=== PATIENT | male | born 1975 | race Caucasian/White ===

== ENCOUNTER → 2019-03-11 14:10 | Outpatient (CLI) | payer BC, SELFPAY ==
--- NOTE | 2019-03-11 14:14 | XR_ITS ---
XR chest 2V HISTORY: ITS.REASON: COUGH ORDERING PHYSICIAN: Gera Ferguson MD PATIENT AGE: 43 years COMPARISON: 01/02/2011 FINDINGS: The cardiomediastinal silhouette and pulmonary vascularity are within normal limits. The lungs are clear without infiltrates, suspicious nodules, or pleural effusions. No acute bony abnormalities. IMPRESSION: Negative chest, no acute finding
== END ==
PROVIDERS: PCP Family Medicine; Visit Provider Family Medicine
DX: R05 Cough (principal)
CPT/HCPCS: 71046

== ENCOUNTER 2021-05-22 03:11 | Emergency (ER) | payer BC, SELFPAY ==
[2021-05-22 03:12] VITALS: BP 113/92; PULSE 100; RESP 18; TEMP 36.9; O2SAT 98; BMI 31.5
[2021-05-22 04:00] LABS: Basophils % 0.4 % (0.1-2.0); Eosinophils # 0.2 K/mm3 (0.0-0.4); Eosinophils % 1.8 % (0.1-12.0); Hemoglobin 16.6 g/dL (14.1-18.0); Lymphocytes # 1.6 K/mm3 (0.7-4.5); Lymphocytes % 18.8 % (10-50); Mean Corpuscular HGB Conc 34.7 g/dL (31.8-35.4); Mean Corpuscular Hemoglobin 28.7 pg (27.0-31.2); Mean Corpuscular Volume 82.9 fl (80-94); Mean Platelet Volume 8.2 fl (7.4-10.4); Monocytes # 0.6 K/mm3 (0.1-1.0); Platelet Count 197 K/mm3 (142-424); Red Blood Count 5.79 M/mm3 (4.60-6.20); Red Cell Distribution Width 13.2 % (11.5-17.5); White Blood Count 8.3 K/mm3 (4.8-10.8)
[2021-05-22 04:15] LABS: Alanine Aminotransferase 20 U/L (12-78); Albumin Level 4.3 g/dl (3.5-5.0); Albumin/Globulin Ratio 1.7 (1.1-1.8); Alkaline Phosphatase 104 U/L (38-126); Anion Gap 13.8 mEq/L (5-15); Aspartate Amino Transferase 22 U/L (17-59); Blood Urea Nitrogen 11 mg/dl (9-20); Calcium 9.2 mg/dl (8.4-10.2); Carbon Dioxide 25 mmol/L (22.0-30.0); Chloride 103 mmol/L (98-107); Creatinine Clearance Estimated 184 mL/min (50-200); Estimated Glomerular Filt Rate 121 ml/min (>60); GFR (African American) 146 ML/MIN (>60); Globulin 2.5 g/dL (1.3-3.2); Glucose 209 mg/dl (74-100); Potassium 3.8 mmoL/L (3.5-5.1); Sodium 138 mmol/L (136-145); Total Protein,Serum 6.8 g/dl (6.3-8.2)
[2021-05-22 04:20] LABS: C-Reactive Protein 8.6 mg/L (0-4)
--- NOTE | 2021-05-22 04:27 | HMH.EDALLER ---
ED Disposition Clinical Impression: Allergic reaction Qualifiers: Encounter type: initial encounter Qualified Code(s): T78.40XA - Allergy, unspecified, initial encounter Disposition: Home, Self-Care Condition on Discharge: Good Instructions: DI for General Allergic Reactions Additional Instructions: call pcp for follow up Prescriptions: predniSONE [Prednisone 20mg Tab] 20 mg PO BID #10 tab Transmission Status: Pending to [id number] Referrals: Gera Ferguson MD [Primary Care Provider] - - Critical Care Critical Care Time: No Attestation: On 05/22/21, the high probability of a clinically significant, sudden or life threatening deterioration of the following system(s) required my full and direct attention, intervention and personal management. The time I documented below is in addition to time spent performing reported procedures but includes the following listed in this critical care notation. Medical Decision Making - Medical Records Medical records reviewed: Yes: I reviewed the patient's medical records. - Phillip Inquiry Pt receiving controlled substance: No Vital Signs: 05/22/21 03:12 Temperature 98.4 F Temperature Source Oral Pulse Rate [Right] 100 H Respiratory Rate 18 Blood Pressure [Right Arm] 113/92 H Blood Pressure Mean [Right Arm] 99 02 Sat by Pulse Oximetry 98 - Lab Data Lab results reviewed: Yes: I reviewed the patient's lab results. Lab Results 05/22/21 03:50: WBC 8.3, RBC 5.79, Hgb 16.6, Hct 48.0, MCV 82.9, MCH 28.7, MCHC 34.7, RDW 13.2, Plt Count 197, MPV 8.2, Neut % (Auto) 72.0, Lymph % (Auto) 18.8, Haskell % (Auto) 7.0, Eos % (Auto) 1.8, Baso % (Auto) 0.4, Neut # (Auto) 6.0, Lymph # (Auto) 1.6, Haskell # (Auto) 0.6, Eos # (Auto) 0.2, Baso # (Auto) 0.0, ESR 1 05/22/21 03:50: Sodium 138, Potassium 3.8, Chloride 103, Carbon Dioxide 25, Anion Gap 13.8, BUN 11, Creatinine 0.70, Estimated Creat Clear 184, Estimated GFR 121, Est GFR ( Amer) 146, Glucose 209 H, Calcium 9.2, Total Bilirubin 1.0, AST 22, ALT 20, Alkaline Phosphatase 104, C-Reactive Protein 8.6 H, Total Protein 6.8, Albumin 4.3, Globulin 2.5, Albumin/Globulin Ratio 1.7, Procalcitonin 0.086 Result diagrams: 05/22/21 03:50 05/22/21 03:50 Orders (Tests/Meds): ED MEDICATIONS Generic Name Dose Route Start Last Admin Trade Name Freq PRN Reason Stop Dose Admin Sodium Chloride 1,000 mls @ 999 mls/hr 05/22/21 04:00 05/22/21 03:57 Sod Chlor 0.9% 1000ml Bag IV 05/22/21 05:00 999 mls/hr .Q1H1M PEDRO Administration Sodium Chloride 8 ml 05/22/21 03:47 Sodium Chloride 0.9% 10ml Vial IV 06/21/21 03:46 NEEDED PRN dilute pepcid Discontinued Medications Generic Name Dose Route Start Last Admin Trade Name Freq PRN Reason Stop Dose Admin Diphenhydramine HCl 50 mg 05/22/21 03:47 05/22/21 03:57 Diphenhydramine 50mg/Ml Vial IV 05/22/21 03:48 50 mg ONCE ONE Administration Famotidine 20 mg 05/22/21 03:47 05/22/21 03:57 Famotidine 20mg/2ml Vial IV 05/22/21 03:48 20 mg ONCE ONE Administration Methylprednisolone Sodium Succinate 125 mg 05/22/21 03:47 05/22/21 03:57 Methylprednisolone Sod Succ 125mg Vial IV 05/22/21 03:48 125 mg ONCE ONE Administration Medical Decision Narrative: improved with airway ok Allergic React/Insect Bite HPI - General Chief complaint: Allergic Reaction Stated complaint: Rash over entire body Time Seen by Provider: 05/22/21 03:40 Mode of Arrival - ED Triage: Ambulatory Source of Information: Patient, Spouse, Medical Record Limitations: No Limitations - History of Present Illness HPI narrative: pt with diffuse rash and itching - no airway compromise - awoke with rash MD complaint: allergic reaction, hives Onset (ago): hour(s) Symptoms: rash Treatment prior to arrival: none Allergies/Adverse Reactions: Allergies Allergy/AdvReac Type Severity Reaction Status Date / Time No Known Allergies Allergy Verified 0
[2021-05-22 04:29] LABS: Erythrocyte Sedimentation Rate 1 mm/hr (0-15)
[2021-05-22 04:34] LABS: Procalcitonin 0.086 ng/mL (0.0-2.0)
[2021-05-22 05:00] VITALS: BP 122/64; PULSE 92; RESP 14; TEMP 36.9; O2SAT 97
[2021-05-22 05:02] VITALS: BP 157/78; PULSE 85; RESP 18; TEMP 36.9; O2SAT 98
== END 2021-05-22 05:03 | disposition home or self-care (01) ==
PROVIDERS: Emergency Provider Emergency Medicine; PCP Family Medicine
DX: T78.40XA Allergy, unspecified, initial encounter (principal); E11.65 Type 2 diabetes mellitus with hyperglycemia; E78.5 Hyperlipidemia, unspecified; Z79.899 Other long term (current) drug therapy
CPT/HCPCS: 80053; 84145; 85025; 85651; 86140; 96365; 96375; 99282

== ENCOUNTER → 2021-06-07 14:46 | Outpatient (CLI) | payer BC, SELFPAY ==
--- NOTE | 2021-06-07 14:51 | XR_ITS ---
PROCEDURE: XR LUMBAR SPINE MIN 4V CLINICAL INDICATION: LOW BACK PAIN COMPARISON: No exams were available for comparison FINDINGS: There are 6 lumbar vertebra. There is mild degenerative disc disease at L5/L6 with 3 mm retrolisthesis of L5. The superior margin of L1 is not covered on the images. There is mild facet arthritic changes at the L6-S1 junction. No acute fracture or dislocation. No lytic or blastic change. IMPRESSION: Lumbarization of S1 with 6 lumbar vertebra with mild degenerative disc disease at the L5-L6 junction and mild facet arthritic change at that level as well Dictated by: Theron Woo MD 06/07/2021 15:36 Theron Woo MD in [place] 06/07/2021 15:36
== END ==
PROVIDERS: PCP Family Medicine; Visit Provider Family Medicine
DX: M54.42 Lumbago with sciatica, left side (principal)
CPT/HCPCS: 72110

== ENCOUNTER → 2021-11-29 09:32 | Outpatient (CLI) | payer OTHER, SELFPAY ==
[2021-11-30 06:50] LABS: Covid-19 Nasal PCR Sendout Lex NOT DETECTED
== END ==
PROVIDERS: PCP Family Medicine; Visit Provider Nurse Practitioner
DX: Z20.822 Contact with and (suspected) exposure to COVID-19 (principal)
CPT/HCPCS: C9803; U0004; U0005

== ENCOUNTER 2021-12-16 17:38 | Emergency (ER) | payer OTHER, SELFPAY ==
[2021-12-16 17:48] VITALS: BP 155/75; PULSE 97; RESP 18; TEMP 36.9; O2SAT 97; BMI 33.2
--- NOTE | 2021-12-16 17:48 | XR_ITS ---
PROCEDURE INFORMATION: Exam: XR Chest Exam date and time: 12/16/2021 5:48 PM Age: 46 years old Clinical indication: Cough TECHNIQUE: Imaging protocol: XR of the chest. Views: 2 views. COMPARISON: DX (CHEST PA, CHEST, CHEST PA) 03/11/2019 2:15 PM FINDINGS: Lungs: Unremarkable. No consolidation. Pleural spaces: Unremarkable. No pleural effusion. No pneumothorax. Heart/Mediastinum: Unremarkable. No cardiomegaly. Bones/joints: Unremarkable. IMPRESSION: No acute findings.
[2021-12-16 18:23] LABS: Strep Scrn Group A (Rapid) Negative (Negative)
[2021-12-16 18:56] LABS: UTC Influenza A Antigen Negative (Negative); UTC Influenza B Antigen Negative (Negative)
--- NOTE | 2021-12-16 19:04 | HMH.EDUTC ---
[facility] [facility] [place] Clinical Impression: Bronchitis Disposition: Home, Self-Care Condition on Discharge: Good Instructions: DI for Acute Bronchitis, Acute Bronchitis Additional Instructions: Drink plenty of fluids. Take tylenol or ibuprofen for pain or fever. Take the medications as directed. Follow up with your regular doctor. GO TO THE ER FOR ANY WORSENING SYMPTOMS Quarantine until you know the results of your covid-19 test. Notify your school or workplace of your results and follow their instructions regarding return to work/school. Don't start the oral steroids until tomorrow, since you had the shot here today. The cough medication (promethazine dm) will make you drowsy, so don't drive or operate heavy machinery after taking it. Prescriptions: Promethazine/Dextromethorphan [Promethazine-Dm Syrup] 5 ml PO Q6HP PRN #240 ml PRN Reason: Cough Transmission Status: Pending to [facility] methylPREDNISolone [Medrol] 4 mg PO DIRECTED 6 Days #21 packet Transmission Status: Pending to [facility] Azithromycin [Z-Elgin 250mg Tab*] 250 mg PO UD DOSE PK #6 tab Transmission Status: Pending to [facility] Referrals: Gera Ferguson MD [Primary Care Provider] - Forms: Work/School Release Time of Disposition: 19:09 Medical Decision Making - Medical Records Medical records reviewed: No: I reviewed the patient's medical records. - Phillip Inquiry Pt receiving controlled substance: No Vital Signs: 12/16/21 17:48 Temperature 98.4 F Temperature Source Oral Pulse Rate [Left] 97 H Respiratory Rate 18 Blood Pressure [Right Arm] 155/75 H Blood Pressure Mean [Right Arm] 101 02 Sat by Pulse Oximetry 97 - Lab Data Lab results reviewed: Yes: I reviewed the patient's lab results. Lab Results 12/16/21 17:51: Group A Strep Rapid Negative 12/16/21 18:45: Influenza Type A Ag Negative, Influenza Type B Ag Negative Orders (Tests/Meds): ED MEDICATIONS Discontinued Medications Generic Name Dose Route Start Last Admin Trade Name Freq PRN Reason Stop Dose Admin Ceftriaxone Sodium 1 gm 12/16/21 18:58 Ceftriaxone 1gm Vial IM 12/16/21 18:59 ONCE ONE Lidocaine HCl 0 ml 12/16/21 18:58 Lidocaine 1% 5ml Pf Vial IM 12/16/21 18:59 ONCE ONE Methylprednisolone Sodium Succinate 125 mg 12/16/21 18:58 Methylprednisolone Sod Succ 125mg Vial IM 12/16/21 18:59 ONCE ONE ORDERS Category Date Time Status Strep Screen Confirmation Stat Micro 12/16/21 17:51 Received - Radiology Data #1 Image(s): Chest Image Reviewed: Yes I reviewed the patient's radiology image, Yes I have reviewed radiologist's interpretation Preliminary Findings: Normal/NAD, No Infiltrates Seen PROCEDURE INFORMATION: Exam: XR Chest Exam date and time: 12/16/2021 5:48 PM Age: 46 years old Clinical indication: Cough TECHNIQUE: Imaging protocol: XR of the chest. Views: 2 views. COMPARISON: DX (CHEST PA, CHEST, CHEST PA) 03/11/2019 2:15 PM FINDINGS: Lungs: Unremarkable. No consolidation. Pleural spaces: Unremarkable. No pleural effusion. No pneumothorax. Heart/Mediastinum: Unremarkable. No cardiomegaly. Bones/joints: Unremarkable. IMPRESSION: No acute findings. [facility] [place] - General Stated complaint: congestion Time Seen by Provider: 12/16/21 17:55 Mode of Arrival: Ambulatory Source of Information: Patient Limitations: No Limitations Description of Symptoms (Recalled from Triage Doc. by RN): pt c/o a nonproductive cough and congestion x2 days. HEENT Symptoms (Recalled from RN notes): Yes Resp Symptoms (Recalled from RN notes): Yes Skin Symptoms (Recalled from RN notes): No MS Symptoms (Recalled from RN notes): No Functional Status (Recalled from RN notes): wnl - History of Present Illness Provider Complaint: He states that he has had chest tigh
[2021-12-16 19:17] VITALS: BP 155/75; PULSE 97; RESP 18; TEMP 36.9
== END 2021-12-16 19:29 | disposition home or self-care (01) ==
PROVIDERS: Emergency Provider Nurse Practitioner Family; PCP Family Medicine
DX: J20.9 Acute bronchitis, unspecified (principal)
CPT/HCPCS: 71046; 87430; 87804; 96372; 99203; C9803; G0463; J0696; U0003; U0005

== ENCOUNTER → 2022-02-19 12:32 | Outpatient (CLI) | payer OTHER, SELFPAY | PROVIDERS: PCP Family Medicine; Visit Provider Nurse Practitioner Family | DX: Z02.4 Encounter for examination for driving license (principal) ==

== ENCOUNTER → 2022-02-22 15:43 | Outpatient (CLI) | payer OTHER, SELFPAY ==
[2022-02-22 16:54] LABS: Potassium 4.2 mmoL/L (3.5-5.1)
== END ==
PROVIDERS: Visit Provider Family Medicine
DX: E87.5 Hyperkalemia (principal)
CPT/HCPCS: 36415; 84132

== ENCOUNTER → 2022-04-05 13:59 | Outpatient (CLI) | payer OTHER, SELFPAY ==
--- NOTE | 2022-04-05 14:03 | MR_ITS ---
FINAL REPORT CLINICAL HISTORY: ACUTE MIDLINE LOW BACK PAIN W/ LT SIDED SCIATICA. LOW BACK PAIN WITH LEFT HIP AND LEG PAIN, NUMBNESS, AND TINGLING X3-4MONTHS. NO RECENT INJURY OR TRAUMA. FINDINGS: Multiplanar MR imaging of the lumbar spine was performed without contrast. On the sagittal T2-weighted images, disc degeneration is seen at L4-5. There is a hemangioma in the L1 vertebral body. The vertebral alignment is normal. There is no evidence of fracture. The conus has an unremarkable appearance. L1-2: There is no significant canal stenosis or neural foraminal narrowing. L2-3: There is no significant canal stenosis or neural foraminal. L3-4: An annular bulge is present with mild right and moderate left neural foraminal narrowing. L4-5: An annular bulge is present. There is a left paracentral inferiorly extruded disc resulting in left lateral recess stenosis and left L5 nerve root impingement. There is possible right L5 nerve root impingement. There is severe bilateral neural foraminal narrowing. There is moderate central canal stenosis with an AP diameter of the thecal sac of 5 mm. There is a small synovial cyst posterior to the facet joint on the right measuring 7 mm. L5-S1: There is no significant canal stenosis or neural foraminal narrowing. There is partial sacralization of L5 on the left. IMPRESSION: Abnormalities at L4-5 as detailed above. Reviewed, Interpreted and Dictated by Jose Guadalupe Almazan III, MD Transcribed by Teressa Casillas Authenticated and [facility]
== END ==
PROVIDERS: PCP Family Medicine; Visit Provider Physician Assistant
DX: M54.42 Lumbago with sciatica, left side (principal)
CPT/HCPCS: 72148; 76376

== ENCOUNTER 2022-07-07 09:35 | Emergency (ER) | payer OTHER, SELFPAY ==
[2022-07-07 10:25] VITALS: BP 134/81; PULSE 115; RESP 22; TEMP 36.7; O2SAT 97; BMI 31.9
[2022-07-07 10:36] LABS: UTC Influenza A Antigen Negative (Negative); UTC Influenza B Antigen Negative (Negative)
--- NOTE | 2022-07-07 10:49 | EXP.UTC ---
Discharge Plan Disposition Patient Disposition: Home, Self-Care Condition: Good Prescriptions Prescriptions: New azithromycin [Zithromax Z-Elgin] 250 mg tablet 250 mg PO DAILY 6 Days Qty: 6 0RF Rx Instructions: start on day 2 of therapy benzonatate 100 mg capsule 100 mg PO TID PRN (Reason: cough) Qty: 30 0RF No Action glimepiride 1 mg tablet 1 mg PO DAILY atorvastatin 10 mg tablet 10 mg PO DAILY meloxicam 15 MG tablet 15 mg PO DAILY metformin 1,000 MG tablet 1,000 mg PO BID cyclobenzaprine 5 MG tablet 5 mg PO BID dapagliflozin 10 MG tablet 10 mg PO DAILY prednisone 20 MG tablet 20 mg PO BID Qty: 10 0RF promethazine-DM 120 ML syrup 5 ml PO Q6HP PRN (Reason: Cough) Qty: 240 0RF azithromycin 250 MG tablet 250 mg PO UD DOSE PK Qty: 6 0RF Rx Instructions: Take two (2) tablets today, then one (1) tablet days #2 thru #5 methylprednisolone 4 MG tablets,dose pack 4 mg PO DIRECTED 6 Days Qty: 21 0RF Referrals Follow up/Referrals: Gera Ferguson MD [Primary Care Provider] - See instructions Activity Restrictions/Add. Instructions Additional Instructions/Restrictions: Start antibiotic today. Be sure to complete entire prescription even if feeling better Monitor temp. Tylenol every 4 hours as needed and / or ibuprofen every 6 hours as needed ( As long as your primary care physician has told you that it ok to take both. For fever/aches/pains ER if no less than 101 despite Tylenol or Motrin Humidifier/vaporizer or hot steamy shower Inhaler every 4-6 hours as needed like we discussed. If unsure how to use it, ask pharmacist to demonstrate how. Should help open airways and improve cough, wheezing, and shortness of breath Mucinex during the day for your cough and cough suppressant only at night. Be sure to drink lots of water. Insurance may not cover a prescriptions for mucinex. Might be cheaper to get 400mg tablets and take 2 tablet in the morning, mid-day and evening with lots of water. *Tessalon Perles will not cause drowsiness but use at bedtime to help stop cough so that you may get some rest. Follow up IMMEDIATELY for new or worsening of symptoms OR no noticeable improvement over the next 48-72 hours. 911 immediately for any life threatening symptoms such as chest pain or difficulty breathing Clinical Impressions Clinical Impression: Bronchitis Instructions Patient Instructions: Sinusitis, Acute Bronchitis Discharge ED Provider: Essence Mason [facility] [place] General Stated complaint: chest congestion Mode of Arrival: Ambulatory Source of Information: Patient Limitations: No Limitations Time Seen by Provider: 07/07/22 10:50 Description of Symptoms (Recalled from Triage Doc. by RN): PATIENT C/O COUGH, BODY ACHES, AND HEAD AND CHEST CONGESTION SINCE YESTERDAY HEENT Symptoms (Recalled from RN notes): Yes Resp Symptoms (Recalled from RN notes): Yes Skin Symptoms (Recalled from RN notes): No MS Symptoms (Recalled from RN notes): No Functional Status (Recalled from RN notes): WNL History of Present Illness Provider Complaint: Patient states that he hasnt been feeling well but started feeling worse yesterday States that he has been having cough, chest congestion and sinus pain and pressure State that he feels like it is draining in the back of his throat and causing his throat to feel irritated and cough Related Data Home Medications Medication Instructions Recorded Confirmed atorvastatin 10 mg tablet 10 mg PO DAILY High cholesterol 11/30/18 05/22/21 glimepiride 1 mg tablet 1 mg PO DAILY Diabetes 11/30/18 05/22/21 cyclobenzaprine 5 mg tablet 5 mg PO BID spasms 05/22/21 05/22/21 dapagliflozin 10 mg tablet 10 mg PO DAILY Diabetes 05/22/21 05/22/21 meloxicam 15 mg tablet 15 mg PO DAILY muscle spams 05/22/21 05/22/21 metformin 1,000 mg tablet 1,000 mg PO BID D
[2022-07-07 11:25] VITALS: BP 134/81; PULSE 115; RESP 22; TEMP 36.7; O2SAT 97
== END 2022-07-07 11:29 | disposition home or self-care (01) ==
PROVIDERS: Emergency Provider Nurse Practitioner; PCP Family Medicine
DX: J40 Bronchitis, not specified as acute or chronic (principal)
CPT/HCPCS: 87804; 96372; 99212; G0463; J0696

== ENCOUNTER 2022-07-12 08:00 | Emergency (ER) | payer OTHER, SELFPAY ==
[2022-07-12 08:10] VITALS: BP 126/92; PULSE 91; RESP 22; TEMP 36.7; O2SAT 99; BMI 32.5
--- NOTE | 2022-07-12 08:44 | EXP.UTC ---
Discharge Plan Disposition Patient Disposition: Home, Self-Care Condition: Good Prescriptions Prescriptions: New methylprednisolone [Medrol (Elgin)] 4 mg tablets,dose pack See Rx Instructions .Route .COMPLEX 6 Days Qty: 21 0RF Rx Instructions: taper pack; albuterol sulfate [Proventil HFA] 90 mcg/actuation HFA aerosol inhaler 1 - 2 inh inhalation Q6H PRN (Reason: shortness of breath or wheezing) Qty: 8.5 0RF amoxicillin-pot clavulanate 875-125 mg Tablet 1 tab PO Q12H 7 Days Qty: 14 0RF fluticasone propionate [Flonase Allergy Relief] 50 mcg/actuation spray,suspension 1 spray intranasal DAILY PRN (Reason: allergy symptoms) Qty: 16 0RF Rx Instructions: administer into each nostril daily No Action glimepiride 1 mg tablet 1 mg PO DAILY atorvastatin 10 mg tablet 10 mg PO DAILY meloxicam 15 MG tablet 15 mg PO DAILY metformin 1,000 MG tablet 1,000 mg PO BID cyclobenzaprine 5 MG tablet 5 mg PO BID dapagliflozin 10 MG tablet 10 mg PO DAILY prednisone 20 MG tablet 20 mg PO BID Qty: 10 0RF promethazine-DM 120 ML syrup 5 ml PO Q6HP PRN (Reason: Cough) Qty: 240 0RF azithromycin 250 MG tablet 250 mg PO UD DOSE PK Qty: 6 0RF Rx Instructions: Take two (2) tablets today, then one (1) tablet days #2 thru #5 methylprednisolone 4 MG tablets,dose pack 4 mg PO DIRECTED 6 Days Qty: 21 0RF azithromycin [Zithromax Z-Elgin] 250 mg tablet 250 mg PO DAILY 6 Days Qty: 6 0RF Rx Instructions: start on day 2 of therapy benzonatate 100 mg capsule 100 mg PO TID PRN (Reason: cough) Qty: 30 0RF Referrals Follow up/Referrals: Gera Ferguson MD [Primary Care Provider] - See instructions Activity Restrictions/Add. Instructions Additional Instructions/Restrictions: Start antibiotic today. Be sure to complete entire prescription even if feeling better Monitor temp. Tylenol every 4 hours as needed and / or ibuprofen every 6 hours as needed ( As long as your primary care physician has told you that it ok to take both. For fever/aches/pains ER if no less than 101 despite Tylenol or Motrin Humidifier/vaporizer or hot steamy shower Inhaler every 4-6 hours as needed like we discussed. If unsure how to use it, ask pharmacist to demonstrate how. Should help open airways and improve cough, wheezing, and shortness of breath Dorethasaljaqueline Perles will not cause drowsiness but use at bedtime to help stop cough so that you may get some rest. *Start steroid today. Helps with inflammation therefore, cough and wheezing. Follow directions on the package. Reviewed side effects. Patient reports taking them before. Follow up IMMEDIATELY for new or worsening of symptoms OR no noticeable improvement over the next 48-72 hours. 911 immediately for any life threatening symptoms such as chest pain or difficulty breathing Clinical Impressions Clinical Impression: Bronchitis, Sinusitis Instructions Patient Instructions: Sinusitis, DI for Sinusitis Discharge ED Provider: Essence Mason [facility] [place] HPI General Stated complaint: congested,cough,runny nose Mode of Arrival: Ambulatory Source of Information: Patient Limitations: No Limitations Time Seen by Provider: 07/12/22 08:44 Description of Symptoms (Recalled from Triage Doc. by RN): PATIENT C/O COUGH, RUNNY NOSE, CHEST CONGESTION AND HEADACHE HEENT Symptoms (Recalled from RN notes): Yes Resp Symptoms (Recalled from RN notes): Yes Skin Symptoms (Recalled from RN notes): No MS Symptoms (Recalled from RN notes): No Functional Status (Recalled from RN notes): WNL History of Present Illness Provider Complaint: Patient states that he has been having cough, sinus congestion and pressure along with chest congestion and headache States that he just finished a Zpack but didnt help much State that they sent him home from work yesterday due to coughing so much so he came back in today Relate
[2022-07-12 09:07] VITALS: BP 126/92; PULSE 91; RESP 22; TEMP 36.7; O2SAT 99
[2022-07-12 09:14] LABS: Adenovirus,PCR Not Detected (NotDetected); Bordetella Pertussis Not Detected (NotDetected); Chlamydophila Pneumoniae, PCR Not Detected (NotDetected); Coronavirus 229E Not Detected (NotDetected); Coronavirus NL63 Not Detected (NotDetected); Coronavirus OC43 Not Detected (NotDetected); Coronovirus HKU1,PCR Not Detected (NotDetected); Human Metapneumovirus Not Detected (NotDetected); Influenza A, PCR Not Detected (NotDetected); Influenza AH1, 2009 Not Detected (NotDetected); Influenza AH1, PCR Not Detected (NotDetected); Influenza AH3,PCR Not Detected (NotDetected); Influenza B, PCR Not Detected (NotDetected); Mycoplasma Pneumoniae, PCR Not Detected (NotDetected); Parainfluenza 1, PCR Not Detected (NotDetected); Parainfluenza 2, PCR Not Detected (NotDetected); Parainfluenza 3, PCR Not Detected (NotDetected); Parainfluenza 4, PCR Not Detected (NotDetected); Respiratory Syncytial Virus Not Detected (NotDetected); Rhinovirus/Enterovirus Not Detected (NotDetected)
[2022-07-12 11:38] LABS: Coronavirus 19, PCR Detected (NotDetected)
== END 2022-07-12 09:10 | disposition home or self-care (01) ==
PROVIDERS: Emergency Provider Nurse Practitioner; PCP Family Medicine
DX: U07.1 COVID-19 (principal); J20.9 Acute bronchitis, unspecified; J01.90 Acute sinusitis, unspecified
CPT/HCPCS: 87581; 87632; 87798; 99212; C9803; G0463; U0003; U0005

== ENCOUNTER 2022-09-08 12:18 | Emergency (ER) | payer OTHER, SELFPAY ==
--- NOTE | 2022-09-08 12:40 | EXP.UTC ---
Discharge Plan Disposition Patient Disposition: Home, Self-Care Condition: Good Prescriptions Prescriptions: New methylprednisolone 4 mg Tablets,Dose Pack 4 mg PO DIRECTED Qty: 21 0RF amoxicillin-pot clavulanate 875-125 mg Tablet 1 tab PO Q12H Qty: 20 0RF guaifenesin [Mucinex] 600 mg tablet extended release 12hr 600 - 1,200 mg PO BIDP PRN (Reason: Congestion) Qty: 30 0RF promethazine-DM 6.25-15 mg/5 mL Syrup 5 ml PO Q6H PRN (Reason: Cough) Qty: 240 0RF No Action glimepiride 1 mg tablet 1 mg PO DAILY atorvastatin 10 mg tablet 10 mg PO DAILY meloxicam 15 MG tablet 15 mg PO DAILY metformin 1,000 MG tablet 1,000 mg PO BID cyclobenzaprine 5 MG tablet 5 mg PO BID dapagliflozin 10 MG tablet 10 mg PO DAILY prednisone 20 MG tablet 20 mg PO BID Qty: 10 0RF promethazine-DM 120 ML syrup 5 ml PO Q6HP PRN (Reason: Cough) Qty: 240 0RF azithromycin 250 MG tablet 250 mg PO UD DOSE PK Qty: 6 0RF Rx Instructions: Take two (2) tablets today, then one (1) tablet days #2 thru #5 methylprednisolone 4 MG tablets,dose pack 4 mg PO DIRECTED 6 Days Qty: 21 0RF azithromycin [Zithromax Z-Elgin] 250 mg tablet 250 mg PO DAILY 6 Days Qty: 6 0RF Rx Instructions: start on day 2 of therapy benzonatate 100 mg capsule 100 mg PO TID PRN (Reason: cough) Qty: 30 0RF methylprednisolone [Medrol (Elgin)] 4 mg tablets,dose pack See Rx Instructions .Route .COMPLEX 6 Days Qty: 21 0RF Rx Instructions: taper pack; albuterol sulfate [Proventil HFA] 90 mcg/actuation HFA aerosol inhaler 1 - 2 inh inhalation Q6H PRN (Reason: shortness of breath or wheezing) Qty: 8.5 0RF amoxicillin-pot clavulanate 875-125 mg Tablet 1 tab PO Q12H 7 Days Qty: 14 0RF fluticasone propionate [Flonase Allergy Relief] 50 mcg/actuation spray,suspension 1 spray intranasal DAILY PRN (Reason: allergy symptoms) Qty: 16 0RF Rx Instructions: administer into each nostril daily Referrals Follow up/Referrals: Gera Ferguson MD [Primary Care Provider] - See instructions Activity Restrictions/Add. Instructions Additional Instructions/Restrictions: Drink plenty of fluids. Take tylenol or ibuprofen for pain or fever. Take the medications as directed. Follow up with your regular doctor. GO TO THE ER FOR ANY WORSENING SYMPTOMS Don't start the oral steroids until tomorrow, since you had the shot here today. Clinical Impressions Clinical Impression: Bronchitis Instructions Patient Instructions: DI for Acute Bronchitis Discharge ED Provider: Edwar Martinez [facility] – [place] HPI General Stated complaint: Chest congestion Time Seen by Provider: 09/08/22 12:40 History of Present Illness Provider Complaint: He states that for the past 3 days he has had chest congestion, cough, sore throat and he has felt bad. Related Data Home Medications Medication Instructions Recorded Confirmed atorvastatin 10 mg tablet 10 mg PO DAILY High cholesterol 11/30/18 05/22/21 glimepiride 1 mg tablet 1 mg PO DAILY Diabetes 11/30/18 05/22/21 cyclobenzaprine 5 mg tablet 5 mg PO BID spasms 05/22/21 05/22/21 dapagliflozin 10 mg tablet 10 mg PO DAILY Diabetes 05/22/21 05/22/21 meloxicam 15 mg tablet 15 mg PO DAILY muscle spams 05/22/21 05/22/21 metformin 1,000 mg tablet 1,000 mg PO BID Diabetes 05/22/21 05/22/21 Previous Rx's Medication Instructions Recorded prednisone 20 mg tablet 20 mg PO BID #10 tabs 05/22/21 azithromycin 250 mg tablet 250 mg PO UD DOSE PK #6 tabs 12/16/21 methylprednisolone 4 mg tablets in 4 mg PO DIRECTED 6 days #21 12/16/21 a dose pack packets promethazine-DM 6.25 mg-15 mg/5 mL 5 ml PO Q6HP PRN Cough #240 mL 12/16/21 oral syrup azithromycin 250 mg tablet 250 mg PO DAILY 6 days #6 tabs 07/07/22 (Zithromax Z-Elgin) benzonatate 100 mg capsule 100 mg PO TID PRN cough #30 caps 07/07/22 albuterol sulfate 90 mcg/actuation 1 - 2 inh
--- NOTE | 2022-09-08 12:47 | XR_ITS ---
FINAL REPORT TECHNIQUE: Chest PA & Lateral CLINICAL HISTORY: cough, congestion COMPARISON: 12/16/2019 FINDINGS: 2 views of the chest were performed. The heart size is normal. The mediastinum is within normal limits. There is no acute cardiopulmonary process. There are no pleural effusions. There is no pneumothorax. The bony thorax appears intact. IMPRESSION: No acute cardiopulmonary process. Reviewed, Interpreted and Dictated by Hemal Thomas MD Transcribed by Zeinab Mello Authenticated and [facility]
[2022-09-08 12:54] VITALS: BP 131/85; PULSE 90; RESP 18; TEMP 36.7; O2SAT 97; BMI 31.5
[2022-09-08 13:33] VITALS: BP 131/85; PULSE 90; RESP 18; TEMP 36.7
== END 2022-09-08 13:34 | disposition home or self-care (01) ==
PROVIDERS: Emergency Provider Nurse Practitioner Family; PCP Family Medicine
DX: J02.9 Acute pharyngitis, unspecified (principal); R09.89 Other specified symptoms and signs involving the circulatory and respiratory systems; R05.9 Cough, unspecified; R11.0 Nausea; E11.9 Type 2 diabetes mellitus without complications; Z79.51 Long term (current) use of inhaled steroids; Z79.52 Long term (current) use of systemic steroids; Z79.84 Long term (current) use of oral hypoglycemic drugs
CPT/HCPCS: 71046; 96372; 99213; G0463; J0696

== ENCOUNTER → 2023-01-26 07:59 | Outpatient (CLI) | payer OTHER, SELFPAY | PROVIDERS: PCP Family Medicine; Visit Provider Nurse Practitioner Family | DX: Z02.4 Encounter for examination for driving license (principal) ==

== ENCOUNTER 2023-05-18 15:47 | Emergency (ER) | payer OTHER, SELFPAY ==
[2023-05-18 15:48] VITALS: BP 121/82; PULSE 85; RESP 18; TEMP 36.8; O2SAT 97; BMI 33.5
--- NOTE | 2023-05-18 15:56 | EXP.UTC ---
Discharge Plan Disposition Patient Disposition: Home, Self-Care Condition: Good Prescriptions Prescriptions: New cyclobenzaprine 10 mg Tablet 10 mg PO BID PRN (Reason: Muscle Spasm) Qty: 20 0RF methylprednisolone 4 mg Tablets,Dose Pack 4 mg PO DIRECTED Qty: 21 0RF ondansetron 4 mg Tablet,Disintegrating 4 mg PO Q8H PRN (Reason: Nausea) Qty: 12 0RF No Action glimepiride 1 mg tablet 1 mg PO DAILY atorvastatin 10 mg tablet 10 mg PO DAILY meloxicam 15 MG tablet 15 mg PO DAILY metformin 1,000 MG tablet 1,000 mg PO BID cyclobenzaprine 5 MG tablet 5 mg PO BID dapagliflozin propanediol 10 MG tablet 10 mg PO DAILY prednisone 20 MG tablet 20 mg PO BID Qty: 10 0RF promethazine-DM 120 ML syrup 5 ml PO Q6HP PRN (Reason: Cough) Qty: 240 0RF azithromycin 250 MG tablet 250 mg PO UD DOSE PK Qty: 6 0RF Rx Instructions: Take two (2) tablets today, then one (1) tablet days #2 thru #5 methylprednisolone 4 MG tablets,dose pack 4 mg PO DIRECTED 6 Days Qty: 21 0RF azithromycin [Zithromax Z-Elgin] 250 mg tablet 250 mg PO DAILY 6 Days Qty: 6 0RF Rx Instructions: start on day 2 of therapy benzonatate 100 mg capsule 100 mg PO TID PRN (Reason: cough) Qty: 30 0RF methylprednisolone [Medrol ([place])] 4 mg tablets,dose pack See Rx Instructions .Route .COMPLEX 6 Days Qty: 21 0RF Rx Instructions: taper pack; albuterol sulfate [Proventil HFA] 90 mcg/actuation HFA aerosol inhaler 1 - 2 inh inhalation Q6H PRN (Reason: shortness of breath or wheezing) Qty: 8.5 0RF amoxicillin-pot clavulanate 875-125 mg Tablet 1 tab PO Q12H 7 Days Qty: 14 0RF fluticasone propionate [Flonase Allergy Relief] 50 mcg/actuation spray,suspension 1 spray intranasal DAILY PRN (Reason: allergy symptoms) Qty: 16 0RF Rx Instructions: administer into each nostril daily methylprednisolone 4 mg Tablets,Dose Pack 4 mg PO DIRECTED Qty: 21 0RF amoxicillin-pot clavulanate 875-125 mg Tablet 1 tab PO Q12H Qty: 20 0RF guaifenesin [Mucinex] 600 mg tablet extended release 12hr 600 - 1,200 mg PO BIDP PRN (Reason: Congestion) Qty: 30 0RF promethazine-DM 6.25-15 mg/5 mL Syrup 5 ml PO Q6H PRN (Reason: Cough) Qty: 240 0RF Referrals Follow up/Referrals: Gera Ferguson MD [Primary Care Provider] - See instructions Activity Restrictions/Add. Instructions Additional Instructions/Restrictions: Go home and rest. It would be best if you rested tomorrow too. No heavy lifting. No twisting. The muscle relaxer (cyclobenzaprine--Flexeril) will make you drowsy, so don't drive or operate heavy machinery after taking it. Don't start the oral steroids (medrol dose pack) until tomorrow, since you had the shots in here today. Follow up with your regular doctor. GO TO THE ER FOR ANY WORSENING SYMPTOMS OR CONCERN, ESPECIALLY BOWEL OR BLADDER ISSUES, SADDLE AREA NUMBNESS, FEVER, ETC Clinical Impressions Clinical Impression: Back pain, Gastroenteritis Instructions Patient Instructions: Low Back Pain, DI for Viral Gastroenteritis -- Adult Discharge ED Provider: Edwar Martinez [facility] General Stated complaint: lower back pain Time Seen by Provider: 05/18/23 15:56 History of Present Illness Provider Complaint: He states that for the past 3 days he has had worsening low back pain. He denies any injury. He has a history of low back pain issues. He denies any bowel or bladder issues. Related Data Home Medications Medication Instructions Recorded Confirmed atorvastatin 10 mg tablet 10 mg PO DAILY High cholesterol 11/30/18 05/22/21 glimepiride 1 mg tablet 1 mg PO DAILY Diabetes 11/30/18 05/22/21 cyclobenzaprine 5 mg tablet 5 mg PO BID spasms 05/22/21 05/22/21 dapagliflozin propanediol 10 mg 10 mg PO DAILY Diabetes 05/22/21 05/22/21 tablet meloxicam 15 mg tablet 15 mg PO DAILY muscle spams 05/22/21 05/22/21 metformin 1,000
[2023-05-18 16:44] VITALS: BP 121/82; PULSE 85; RESP 18; TEMP 36.8; O2SAT 97
== END 2023-05-18 16:45 | disposition home or self-care (01) ==
PROVIDERS: Emergency Provider Nurse Practitioner Family; PCP Family Medicine
DX: M54.50 Low back pain, unspecified (principal); E11.9 Type 2 diabetes mellitus without complications; Z79.84 Long term (current) use of oral hypoglycemic drugs; K52.9 Noninfective gastroenteritis and colitis, unspecified
CPT/HCPCS: 96372; 99212; 99214; G0463

== ENCOUNTER 2023-11-21 16:33 | Emergency (ER) | payer OTHER, SELFPAY ==
--- NOTE | 2023-11-21 16:42 | XR_ITS ---
PROCEDURE INFORMATION: Exam: XR Chest Exam date and time: 11/21/2023 4:36 PM Age: 48 years old Clinical indication: Cough; Additional info: Cough for a week TECHNIQUE: Imaging protocol: Radiologic exam of the chest. Views: 2 views. COMPARISON: CR XR CHEST 2V 09/08/2022 12:47 PM FINDINGS: Lungs: No evidence of acute pulmonary disease or infiltrates Pleural spaces: No large effusion or pneumothorax. Heart/Mediastinum: No evidence of mediastinal widening or cardiac silhouette enlargement; the mediastinum and heart appear within normal limits for contour and size. Bones/joints: No evidence of acute osseous abnormalities within the visualized portions of the thoracic spine and ribs. Osseous structures appear appropriate for patient age. IMPRESSION: No dense parenchymal consolidation, pleural effusion, or pneumothorax.
[2023-11-21 16:55] VITALS: BP 125/84; PULSE 84; RESP 18; TEMP 36.6; O2SAT 97; BMI 32.8
--- NOTE | 2023-11-21 17:04 | EXP.UTC ---
Discharge Plan Disposition Patient Disposition: Home, Self-Care Condition: Good Prescriptions Prescriptions: New azithromycin [Zithromax] 250 mg tablet 250 mg PO UD DOSE PK Qty: 6 0RF Rx Instructions: Take two (2) tablets today, then one (1) tablet days #2 thru #5 benzonatate [benzonatate] 100 mg capsule 100 mg PO TIDP PRN (Reason: Cough) Qty: 30 0RF methylprednisolone 4 mg Tablets,Dose Pack 4 mg PO DIRECTED 6 Days Qty: 21 0RF Rx Instructions: Take 1 pack as directed for 6 days No Action glimepiride 1 mg tablet 1 mg PO DAILY atorvastatin 10 mg tablet 10 mg PO DAILY metformin 1,000 MG tablet 1,000 mg PO BID Farxiga 10 MG tablet 10 mg PO DAILY pioglitazone 30 mg tablet 30 mg PO DAILY Patient Comments: TAKE 1 TABLET BY MOUTH ONCE DAILY ezetimibe 10 mg tablet 10 mg PO DAILY Patient Comments: TAKE 1 TABLET BY MOUTH ONCE DAILY Rybelsus 14 mg tablet 14 mg PO DAILY Patient Comments: TAKE 1 TABLET BY MOUTH ONCE DAILY Referrals Follow up/Referrals: Gera Ferguson MD [Primary Care Provider] - See instructions Activity Restrictions/Add. Instructions Additional Instructions/Restrictions: Drink plenty of fluids. Take tylenol or ibuprofen for pain or fever. Take the medications as directed. Follow up with your regular doctor. GO TO THE ER FOR ANY WORSENING SYMPTOMS Don't start the oral steroids until tomorrow, since you had the shot here today. Clinical Impressions Clinical Impression: Acute bronchitis Instructions Patient Instructions: Acute Bronchitis, DI for Acute Bronchitis Discharge ED Provider: Edwar Martinez [facility] General Stated complaint: cough, lit Time Seen by Provider: 11/21/23 17:11 History of Present Illness Provider Complaint: He states that for the past 3 weeks he has had sore throat, sinus congestion, chest congestion, and productive cough. Related Data Home Medications Medication Instructions Recorded Confirmed atorvastatin 10 mg tablet 10 mg PO DAILY High cholesterol 11/30/18 11/21/23 glimepiride 1 mg tablet 1 mg PO DAILY Diabetes 11/30/18 11/21/23 dapagliflozin propanediol 10 mg 10 mg PO DAILY Diabetes 05/22/21 11/21/23 tablet (Farxiga) metformin 1,000 mg tablet 1,000 mg PO BID Diabetes 05/22/21 11/21/23 ezetimibe 10 mg tablet 10 mg PO DAILY 11/21/23 11/21/23 pioglitazone 30 mg tablet 30 mg PO DAILY 11/21/23 11/21/23 semaglutide 14 mg tablet (Rybelsus) 14 mg PO DAILY 11/21/23 11/21/23 Previous Rx's Medication Instructions Recorded azithromycin 250 mg tablet 250 mg PO UD DOSE PK #6 tabs 11/21/23 (Zithromax) benzonatate 100 mg capsule 100 mg PO TIDP PRN Cough #30 caps 11/21/23 methylprednisolone 4 mg tablets in 4 mg PO DIRECTED 6 days #21 tabs 11/21/23 a dose pack Allergies Allergy/AdvReac Type Severity Reaction Status Date / Time No Known Allergies Allergy Verified 11/21/23 17:06 [facility] Disclaimer: The information contained in this section may have been updated after the patient was seen, as this information can be updated by other users. Medical History Diabetes mellitus, type 2 Surgical History History of back surgery Social History Smoking Status: Never smoker alcohol intake: never current occupational status: employed Travel in the last 8 weeks: None household members: family housing: house ROS Obtained: Yes All systems reviewed & no additional complaints except as documented Constitutional Constitutional: Reports poor appetite Eyes Eyes: Reports system reviewed and no additional complaints, except as documented ENT Ears, Nose, Mouth, and Throat: Reports as per HPI Cardiovascular Cardiovascular: Reports system reviewed and no additional complaints, except as documented and Denies chest pain Respiratory Respiratory: Denies shortness of breath, Reports chest congestion, Reports cough, Denies stridor and Denies wheezing Gastrointestinal Gastrointestingal: Reports system reviewed and no additional complaints, except as documented; Denies abdominal pain, diarrhea or vomiting Musculoskeletal Musculoskeletal: Reports system reviewed and no additional complaints, except as documented and Denies arthralgias Integumentary/Breasts Skin/Breast: Reports system reviewed and no additional complaints, except as documented and Denies rash Neurologic Neurologic: Denies paresthesias Allergic/Immunologic Allergic/Immunologic: Denies wheezing Physical Exam General General appearance: alert and in no apparent distress Head Head exam: atraumatic, normocephalic and normal inspection Eye Eye exam: Present normal appearance, PERRL and EOMI ENT ENT exam: Present normal exam, normal oropharynx, mucous membranes moist, TM's normal bilaterally and normal external ear exam Neck Neck exam: Present normal inspection, full ROM and trachea midline; Absent meningismus or lymphadenopathy Chest Chest inspection: Present normal inspection and symmetric chest wall rise; Absent tenderness Respiratory Respiratory exam: Present normal lung sounds bilaterally; Absent respiratory distress Cardiovascular Cardiovascular exam: Present regular rate and normal rhythm; Absent JVD Abdominal Exam Abdominal exam: Present soft and normal bowel sounds; Absent distention, tenderness or guarding Extremities Exam Extremities exam: Present normal inspection, full ROM and normal capillary refill; Absent calf tenderness Back Exam Back exam: Present normal inspection; Absent tenderness Neurological Exam Neurological exam: Present alert and oriented X3 Psychiatric Psychiatric exam: Present normal affect and normal mood Skin Skin exam: Present warm, dry, intact and normal color Lymphatic Lymphatic Findings: no adenopathy Medical Decision Making Medical Records Medical records reviewed: No I reviewed the patient's medical records. Phillip Inquiry Pt receiving controlled substance: No Orders (Tests/Meds): ORDERS Category Date Time Status Chest XR 2 view (NOT portable) [XR chest 2V] Stat Exams 11/21/23 16:42 Completed
[2023-11-21] MEDS: cefTRIAXone 1GM VIAL 1 GM IM (17:14)
[2023-11-21] MEDS: LIDOCAINE 1% 5ML PF VIAL IM (17:14)
[2023-11-21] MEDS: DEXAMETHASONE 4MG/ML 1ML VIAL 8 MG IM (17:14)
[2023-11-21 17:48] VITALS: BP 125/84; PULSE 84; RESP 18; TEMP 36.6; O2SAT 97
== END 2023-11-21 17:48 | disposition home or self-care (01) ==
PROVIDERS: Emergency Provider Nurse Practitioner Family; PCP Family Medicine
DX: J20.9 Acute bronchitis, unspecified (principal); R05.8 Other specified cough; R09.89 Other specified symptoms and signs involving the circulatory and respiratory systems; R07.0 Pain in throat; R09.81 Nasal congestion; E11.9 Type 2 diabetes mellitus without complications; Z79.84 Long term (current) use of oral hypoglycemic drugs
CPT/HCPCS: 71046; 96372; 99212; 99214; G0463; J0696

== ENCOUNTER 2023-12-24 12:37 | Outpatient (CLI) | payer SELFPAY ==
[2023-12-24 20:57] VITALS: BMI 32.8
== END 2023-12-24 13:07 | disposition home or self-care (01) ==
PROVIDERS: PCP Family Medicine; Visit Provider Nurse Practitioner Family
DX: Z02.4 Encounter for examination for driving license (principal)

== ENCOUNTER 2024-05-09 08:03 | Outpatient (CLI) | payer OTHER, SELFPAY ==
[2024-05-09 08:06] LABS: Adenovirus F 40/41, stool Not Detected (NotDetected); Astrovirus Not Detected (NotDetected); Campylobacter Not Detected (NotDetected); Clostridium Difficile A/B, PCR Not Detected (NotDetected); Cryptosporidium Not Detected (NotDetected); Cyclospora Cayetanesis Not Detected (NotDetected); Entamoeba histolytica Not Detected (NotDetected); Enteroaggregative E coli Not Detected (NotDetected); Enteropathogenic E coli Not Detected (NotDetected); Enterotoxigenic E coli Not Detected (NotDetected); Giardia lamblia Not Detected (NotDetected); Norovirus Not Detected (NotDetected); Plesimonas Shigalloides, PCR Not Detected (NotDetected); Rotavirus A Not Detected (NotDetected); Salmonella, PCR Not Detected (NotDetected); Sapovirus Not Detected (NotDetected); Shiga-like toxin E coli Not Detected (NotDetected); Shigella Enterovasive E coli Not Detected (NotDetected); Vibrio Cholerae Not Detected (NotDetected); Vibrio, PCR Not Detected (NotDetected); Yersinia Entercolitica, PCR Not Detected (NotDetected)
== END 2024-05-09 23:59 | disposition home or self-care (01) ==
LOC: LAB.DROPOF 08:04
PROVIDERS: PCP Family Medicine; Visit Provider Nurse Practitioner Family
DX: R19.7 Diarrhea, unspecified (principal)
CPT/HCPCS: 87507

== ENCOUNTER 2024-05-15 07:36 | Outpatient (CLI) | payer OTHER, SELFPAY ==
--- NOTE | 2024-05-15 08:07 | US_ITS ---
FINAL REPORT TECHNIQUE: Sonographic images of the right upper quadrant were obtained. CLINICAL HISTORY: ABD PAIN/ DIARRHEA COMPARISON: None FINDINGS: PANCREAS: Unremarkable. LIVER: Homogeneous. No focal hepatic lesion. No intrahepatic biliary ductal dilatation. GALLBLADDER: No gallstones. No gallbladder wall thickening or pericholecystic fluid. COMMON DUCT: 3 mm. Normal for age. RIGHT KIDNEY: The right kidney measures 11.8 cm. There is no hydronephrosis, mass, or stone. FREE FLUID: None. IMPRESSION: Unremarkable ultrasound of the right upper quadrant. Reviewed, Interpreted and Dictated by Chiara Pedroza MD Transcribed by Mary Ulloa Authenticated and [facility]
== END 2024-05-15 23:59 | disposition home or self-care (01) ==
LOC: RAD 07:37
PROVIDERS: PCP Nurse Practitioner; Visit Provider Nurse Practitioner
DX: R10.9 Unspecified abdominal pain (principal); R19.7 Diarrhea, unspecified
CPT/HCPCS: 76705

== ENCOUNTER 2024-06-08 15:42 | Outpatient (CLI) | payer OTHER, SELFPAY ==
[2024-06-11 15:11] LABS: H. pylori Breath Test Positive (Negative)
[2024-06-14 06:14] LABS: F026-IgE Pork 0.41 kU/L (Class I); F027-IgE Beef 0.85 kU/L (Class II); F088-IgE Lamb 0.41 kU/L (Class I); Immunoglobulin E, Total 236 IU/mL (6-495); O215-IgE Alpha-Gal 5.45 kU/L (Class IV)
== END 2024-06-08 23:59 | disposition home or self-care (01) ==
PROVIDERS: PCP Nurse Practitioner; Visit Provider Nurse Practitioner Family
DX: K21.9 Gastro-esophageal reflux disease without esophagitis (principal); R10.9 Unspecified abdominal pain; R19.7 Diarrhea, unspecified
CPT/HCPCS: 36415; 83013

== ENCOUNTER 2024-06-26 15:00 | Outpatient (CLI) | payer OTHER, SELFPAY ==
[2024-07-04 09:21] LABS: F002-IgE Milk 0.37 kU/L (Class I); Immunoglobulin E, Total 163 IU/mL (6-495)
== END 2024-06-26 23:59 | disposition home or self-care (01) ==
PROVIDERS: Visit Provider Nurse Practitioner
DX: R11.2 Nausea with vomiting, unspecified (principal); R19.7 Diarrhea, unspecified; K59.00 Constipation, unspecified; T78.1XXA Other adverse food reactions, not elsewhere classified, initial encounter
CPT/HCPCS: 36415; 82785; 86003

== ENCOUNTER 2024-06-28 08:18 | Emergency (ER) | payer OTHER, SELFPAY ==
[2024-06-28 08:30] VITALS: BP 143/98; PULSE 90; RESP 18; TEMP 36.9; O2SAT 95; BMI 33.5
--- NOTE | 2024-06-28 09:01 | EXP.UTC ---
Discharge Plan Disposition Patient Disposition: Home, Self-Care Condition: Good Prescriptions Prescriptions: New amoxicillin 500 mg capsule 500 mg PO TID 7 Days Qty: 21 0RF fluticasone propionate [Flonase Allergy Relief] 50 mcg/actuation spray,suspension 2 spray intranasal DAILY Qty: 16 0RF Rx Instructions: administer into each nostril meclizine 25 mg tablet 25 mg PO TID PRN (Reason: dizziness) Qty: 12 0RF ondansetron 4 mg tablet,disintegrating 4 mg PO Q8H PRN (Reason: nausea and vomiting) Qty: 10 0RF No Action glimepiride 4 mg tablet 4 mg PO DAILY Patient Comments: TAKE 1 TABLET BY MOUTH TWICE DAILY pioglitazone 30 mg tablet 30 mg PO DAILY Patient Comments: TAKE 1 TABLET BY MOUTH ONCE DAILY dapagliflozin propanediol [Farxiga] 10 mg tablet 10 mg PO DAILY Patient Comments: TAKE 1 TABLET BY MOUTH ONCE DAILY Rybelsus 14 mg tablet 14 mg PO DAILY Patient Comments: TAKE 1 TABLET BY MOUTH ONCE DAILY Referrals Follow up/Referrals: Ailyn Hernandez APRN [Primary Care Provider] - See instructions Activity Restrictions/Add. Instructions Additional Instructions/Restrictions: Slow steady movements allow feet to dangle before getting up Follow up with your Family Doctor if symptoms return or worsen Take medication as prescribed Straight to ER if any chest pain, shortness of breath, or any life threatening symtoms Return if needed Clinical Impressions Clinical Impression: Vertigo Stand Alone Forms Stand Alone Forms: Work/School Release Instructions Patient Instructions: Vertigo, DI for Vertigo, Meclizine Print Language Print Language: Romanian Discharge ED Provider: Essence Mason [facility] HPI General Stated complaint: dizzy, nausea Mode of Arrival: Ambulatory Source of Information: Patient Limitations: No Limitations Time Seen by Provider: 06/28/24 09:01 Description of Symptoms (Recalled from Triage Doc. 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 and was standing there and felt dizzy like the world was spinning around him, States he set down and the dizziness got better and it made him feel sick at his stomach States he has had some pressure behind his eyes and not sure if he has been exposed to COVID or not Denies chest pain Denies SOA Denies any vision changes Related Data Home Medications ?Medication ?Instructions ?Recorded ?Confirmed dapagliflozin propanediol 10 mg 10 mg PO DAILY 06/28/24 06/28/24 tablet (Farxiga) glimepiride 4 mg tablet 4 mg PO DAILY 06/28/24 06/28/24 pioglitazone 30 mg tablet 30 mg PO DAILY 06/28/24 06/28/24 semaglutide 14 mg tablet (Rybelsus) 14 mg PO DAILY 06/28/24 06/28/24 Previous Rx's ?Medication ?Instructions ?Recorded amoxicillin 500 mg capsule 500 mg PO TID 7 days #21 caps 06/28/24 fluticasone propionate 50 2 spray intranasal DAILY #16 grams 06/28/24 mcg/actuation nasal spray,suspension (Flonase Allergy Relief) meclizine 25 mg tablet 25 mg PO TID PRN dizziness #12 tabs 06/28/24 ondansetron 4 mg disintegrating 4 mg PO Q8H PRN nausea and 06/28/24 tablet vomiting #10 tabs Allergies Allergy/AdvReac Type Severity Reaction Status Date / Time No Known Allergies Allergy Verified 11/21/23 17:06 Worker's Comp Is this a Worker's Comp case?: [facility] Disclaimer: The information contained in this section may have been updated after the patient was seen, as this information can be updated by other users. Medical History Diabetes mellitus, type 2 Surgical His
[2024-06-28 09:54] LABS: POC Glucose,Bedside 116 (70-110)
[2024-06-28 10:00] VITALS: BP 143/98; PULSE 90; RESP 18; TEMP 36.9; O2SAT 95
== END 2024-06-28 10:04 | disposition home or self-care (01) ==
PROVIDERS: Emergency Provider Nurse Practitioner; PCP Nurse Practitioner
DX: U07.1 COVID-19 (principal); R42 Dizziness and giddiness; R11.0 Nausea
CPT/HCPCS: 82962; 87635; 99212; 99214; G0463

== ENCOUNTER 2024-07-17 09:10 | Outpatient (CLI) | payer OTHER, SELFPAY ==
[2024-07-17 09:39] LABS: Basophils % 0.8 % (0.1-2.0); Eosinophils # 0.1 K/mm3 (0.0-0.4); Eosinophils % 2.6 % (0.1-12.0); Hematocrit 50.1 % (42.0-52.0); Hemoglobin 15.8 g/dL (14.1-18.0); Lymphocytes # 1.4 K/mm3 (0.7-4.5); Lymphocytes % 26.2 % (10-50); Mean Corpuscular HGB Conc 31.6 g/dL (31.8-35.4); Mean Corpuscular Hemoglobin 28.7 pg (27.0-31.2); Mean Platelet Volume 7.3 fl (7.4-10.4); Monocytes # 0.4 K/mm3 (0.1-1.0); Monocytes % 7.5 % (1.7-9.3); Neutrophils # 3.5 K/mm3 (1.8-7.8); Neutrophils % 62.9 % (37.0-80.0); Platelet Count 207 K/mm3 (142-424); Red Cell Distribution Width 12.9 % (11.5-17.5); White Blood Count 5.5 K/mm3 (4.8-10.8)
[2024-07-17 10:02] LABS: Chloride 110 mmol/L (98-107); Potassium 4.2 mmoL/L (3.5-5.1); Sodium 139 mmol/L (136-145)
[2024-07-17 10:05] LABS: Alanine Aminotransferase 22 U/L (12-78); Albumin/Globulin Ratio 1.6 (1.1-1.8); Alkaline Phosphatase 72 U/L (38-126); Anion Gap 6.2 mEq/L (5-15); Aspartate Amino Transferase 25 U/L (17-59); Bilirubin,Total 0.7 mg/dl (0.2-1.3); Blood Urea Nitrogen 14 mg/dl (9-20); Calcium 8.8 mg/dl (8.4-10.2); Carbon Dioxide 27 mmol/L (22.0-30.0); Cholesterol 294 mg/dl (140-200); Estimated Glomerular Filt Rate 119 ml/min (>60); GFR (African American) 144 ML/MIN (>60); Globulin 2.5 g/dL (1.3-3.2); Glucose 120 mg/dl (74-100); Total Protein,Serum 6.5 g/dl (6.3-8.2); Triglycerides 273 mg/dl (30-150); VLDL Cholesterol 55 mg/dL (0-40)
[2024-07-17 10:06] LABS: Chol/HDL Ratio 7.5 (1-3.5); HDL Cholesterol 39 mg/dl (40-60)
[2024-07-17 10:17] LABS: Direct LDL Cholesterol 155.49 mg/dL (100-129)
[2024-07-17 11:27] LABS: Hemoglobin A1C 6.6 % (4.0-6.0)
[2024-07-17 11:33] LABS: Creatinine,Urine Random 111 mg/dL (Not Estab.)
[2024-07-17 11:37] LABS: Microalbumin < 6.000 mg/L (0-16.7)
== END 2024-07-17 23:59 | disposition home or self-care (01) ==
LOC: LAB 09:12
PROVIDERS: PCP Nurse Practitioner Family; Visit Provider Nurse Practitioner Family
DX: E11.9 Type 2 diabetes mellitus without complications (principal); Z79.84 Long term (current) use of oral hypoglycemic drugs
CPT/HCPCS: 36415; 80053; 80061; 82043; 82570; 83036; 85025

== ENCOUNTER 2024-08-03 07:45 | Outpatient (CLI) | payer OTHER, SELFPAY ==
[2024-08-07 10:14] LABS: F026-IgE Pork 0.45 kU/L (Class I); F027-IgE Beef 1.48 kU/L (Class III); F088-IgE Lamb 0.66 kU/L (Class II); Immunoglobulin E, Total 161 IU/mL (6-495); O215-IgE Alpha-Gal 6.14 kU/L (Class IV)
[2024-08-14 09:44] LABS: Miscellaneous Test SCANNED IMAGE
== END 2024-08-03 23:59 | disposition home or self-care (01) ==
LOC: LAB 07:47
PROVIDERS: PCP Nurse Practitioner Family; Visit Provider Nurse Practitioner Family
DX: E88.01 Alpha-1-antitrypsin deficiency (principal)
CPT/HCPCS: 36415

== ENCOUNTER 2024-08-17 07:32 | Outpatient (CLI) | payer OTHER, SELFPAY ==
[2024-08-18 13:08] LABS: H. pylori Breath Test Positive (Negative)
== END 2024-08-17 23:59 | disposition home or self-care (01) ==
LOC: LAB 07:34
PROVIDERS: PCP Nurse Practitioner Family; Visit Provider Nurse Practitioner Family
DX: Z86.19 Personal history of other infectious and parasitic diseases (principal)
CPT/HCPCS: 83013

== ENCOUNTER 2024-09-09 10:47 | Emergency (ER) | payer OTHER, SELFPAY ==
[2024-09-09 11:23] VITALS: BP 113/79; PULSE 91; RESP 16; TEMP 36.8; O2SAT 98; BMI 32.9
--- NOTE | 2024-09-09 11:27 | EXP.UTC ---
Discharge Plan Disposition Patient Disposition: Home, Self-Care Condition: Good Prescriptions Prescriptions: New amoxicillin-pot clavulanate 875-125 mg Tablet 1 tab PO Q12H Qty: 20 0RF guaifenesin [Mucinex] 600 mg tablet extended release 12hr 1,200 mg PO BID PRN (Reason: cough) Qty: 20 0RF methylprednisolone [Medrol ([place])] 4 mg tablets,dose pack See Rx Instructions .Route .COMPLEX 6 Days Qty: 21 0RF Rx Instructions: taper pack; No Action glimepiride 4 mg tablet 4 mg PO DAILY Patient Comments: TAKE 1 TABLET BY MOUTH TWICE DAILY pioglitazone 30 mg tablet 30 mg PO DAILY Patient Comments: TAKE 1 TABLET BY MOUTH ONCE DAILY dapagliflozin propanediol [Farxiga] 10 mg tablet 10 mg PO DAILY Patient Comments: TAKE 1 TABLET BY MOUTH ONCE DAILY Rybelsus 14 mg tablet 14 mg PO DAILY Patient Comments: TAKE 1 TABLET BY MOUTH ONCE DAILY amoxicillin 500 mg capsule 500 mg PO TID 7 Days Qty: 21 0RF fluticasone propionate [Flonase Allergy Relief] 50 mcg/actuation spray,suspension 2 spray intranasal DAILY Qty: 16 0RF Rx Instructions: administer into each nostril meclizine 25 mg tablet 25 mg PO TID PRN (Reason: dizziness) Qty: 12 0RF ondansetron 4 mg tablet,disintegrating 4 mg PO Q8H PRN (Reason: nausea and vomiting) Qty: 10 0RF Referrals Follow up/Referrals: Sarah Vo APRN [Primary Care Provider] - See instructions Activity Restrictions/Add. Instructions Additional Instructions/Restrictions: *Monitor Temp, Over the counter Motrin or Tylenol as directed/as needed Tylenol every 4 hours and Motrin every 6 hours (as long as your family doctor has told you that you can take it) for fever or pain. and straight to ER if unable to lower temp less than 101.0 after medication given *Warm salt water gargles may help to soothe the throat *Throat Lozenges? *Warm fluids like tea with honey may help to soothe the throat? *Sleep elevated *Humidifier/Vaporizer Take medication as prescribed Follow up IMMEDIATELY for new or worsening symptoms or no Noticeable improvement over the next 48-72 hours. 911 for difficulty breathing or swallowing Clinical Impressions Clinical Impression: Sinusitis Stand Alone Forms Stand Alone Forms: Work/School Release Instructions Patient Instructions: DI for Sinusitis, Sinusitis Print Language Print Language: Macedonian Discharge ED Provider: Essence Mason [facility] [place] General Stated complaint: sinus pressure behind eyes Mode of Arrival: Ambulatory Source of Information: Patient Limitations: No Limitations Time Seen by Provider: 09/09/24 11:27 Description of Symptoms (Recalled from Triage Doc. by RN): Reports sinus pressure and upset stomach. HEENT Symptoms (Recalled from RN notes): Yes Resp Symptoms (Recalled from RN notes): No Skin Symptoms (Recalled from RN notes): No MS Symptoms (Recalled from RN notes): No Functional Status (Recalled from RN notes): wnl History of Present Illness Provider Complaint: Patient states for the last couple of weeks he has been having sinus pain and pressure, cough and feels like he is having drainage in the back of his throat into his chest and abdomen making him feels sick at his stomach at times Related Data Home Medications ?Medication ?Instructions ?Recorded ?Confirmed dapagliflozin propanediol 10 mg 10 mg PO DAILY 06/28/24 06/28/24 tablet (Farxiga) glimepiride 4 mg tablet 4 mg PO DAILY 06/28/24 06/28/24 pioglitazone 30 mg tablet 30 mg PO DAILY 06/28/24 06/28/24 semaglutide 14 mg tablet (Rybelsus) 14 mg PO DAILY 06/28/24 06/28/24 Previous Rx's ?Medication ?Instructions ?Recorded amoxicillin 500 mg capsule 500 mg PO TID 7 days #21 caps 06/28/24 fluticasone propionate 50 2 spray intranasal DAILY #16 grams 06/28/24 mcg/actuation nasal spray,suspension (Flonase Allergy Relief) meclizine 25 mg tablet 25 mg PO TID PRN dizziness #12 tabs 06/28/24 ondansetron 4 mg disintegrating 4 mg PO Q8H PRN nausea and 06/28/24 tablet vomiting #10 tabs amoxicillin 875 mg-potassium 1 tab PO Q12H #20 tabs 09/09/24 clavulanate 125 mg tablet guaifenesin 600 mg tablet, 1,200 mg (2 x 600 mg) PO BID PRN 09/09/24 extended release 12 hr (Mucinex) cough #20 tabs methylprednisolone 4 mg tablets in See Rx Instructions .Route 09/09/24 a dose pack (Medrol ([place])) .COMPLEX 6 days #21 tabs Allergies Allergy/AdvReac Type Severity Reaction Status Date / Time No Known Allergies Allergy Verified 11/21/23 17:06 Worker's Comp Is this a Worker's Comp case?: No [facility] Disclaimer: The information contained in this section may have been updated after the patient was seen, as this information can be updated by other users. Medical History Diabetes mellitus, type 2 Surgical History History of back surgery Social History Smoking Status: Never smoker alcohol intake: never current occupational status: employed Travel in the last 8 weeks: None household members: family housing: house ROS Obtained: Yes All systems reviewed & no additional complaints except as documented and Yes Systems reviewed as appropriate & no additional complaints except as documented Constitutional Constitutional: Reports system reviewed and no additional complaints, except as documented, Reports as per HPI and Reports headache(s) ENT Ears, Nose, Mouth, and Throat: Reports system reviewed and no additional complaints, except as documented, Reports as per HPI, Reports headache(s), Reports sinus pain and Reports sinus pressure Cardiovascular Cardiovascular: Reports system reviewed and no additional complaints, except as documented and Reports as per HPI Respiratory Respiratory: Reports system reviewed and no additional complaints, except as documented and Reports as per HPI Gastrointestinal Gastrointestingal: Reports system reviewed and no additional complaints, except as documented and as per HPI Musculoskeletal Musculoskeletal: Reports system reviewed and no additional complaints, except as documented and Reports as per HPI Neurologic Neurologic: Reports headache(s) Physical Exam General General appearance: alert and in no apparent distress ENT ENT exam: Present mucous membranes moist Expanded ENT Exam Nose exam: Present sinus tenderness Throat exam: Present other (PND noted) Respiratory Respiratory exam: Present normal lung sounds bilaterally; Absent respiratory distress or wheezes Cardiovascular Cardiovascular exam: Present regular rate, normal rhythm and normal heart sounds Abdominal Exam Abdominal exam: Present soft and normal bowel sounds; Absent distention or tenderness Neurological Exam Neurological exam: Present alert, oriented X3 and normal gait Medical Decision Making Medical Records Screening: Per USPSTF and CDC recommendations, given the prevalence of disease in our region, it is our hospital?s policy to screen for HIV and viral Hepatitis for all patients aged 18 and over and those with ongoing risk factors. Phillip Inquiry Pt receiving controlled substance: No Phillip was queried for this patient: No Vital Signs: 09/09/24 11:23 Temperature 98.3 F Temperature Source Oral Pulse Rate [Radial] 91 H Respiratory Rate 16 Blood Pressure [Right Arm] 113/79 Blood Pressure Mean [Right Arm] 90 Blood Pressure Source [Right Arm] Automatic Cuff Blood Pressure Position [Right Arm] Sitting 02 Sat by Pulse Oximetry 98 Oxygen Delivery Method Room Air
[2024-09-09 11:37] VITALS: BP 113/79; PULSE 91; RESP 16; TEMP 36.8; O2SAT 98
== END 2024-09-09 11:40 | disposition home or self-care (01) ==
PROVIDERS: Emergency Provider Nurse Practitioner; PCP Nurse Practitioner Family
DX: J01.90 Acute sinusitis, unspecified (principal); R09.81 Nasal congestion; R05.9 Cough, unspecified; R11.0 Nausea; R51.9 Headache, unspecified
CPT/HCPCS: 99212; G0381

== ENCOUNTER 2024-10-19 08:59 | Outpatient (CLI) | payer OTHER, SELFPAY ==
[2024-10-25 10:12] LABS: F088-IgE Lamb 0.29 kU/L (Class 0/I); Immunoglobulin E, Total 167 IU/mL (6-495); O215-IgE Alpha-Gal 2.79 kU/L (Class III)
== END 2024-10-19 23:59 | disposition home or self-care (01) ==
LOC: LAB 09:00
PROVIDERS: PCP Nurse Practitioner Family; Visit Provider Nurse Practitioner Family
DX: R19.7 Diarrhea, unspecified (principal)
CPT/HCPCS: 36415; 86008

== ENCOUNTER 2024-10-26 14:27 | Emergency (ER) | payer OTHER, SELFPAY ==
--- NOTE | 2024-10-26 14:36 | XR_ITS ---
PROCEDURE INFORMATION: Exam: XR Chest Exam date and time: 10/26/2024 2:29 PM Age: 49 years old Clinical indication: Cough and shortness of breath TECHNIQUE: Imaging protocol: Radiologic exam of the chest. Views: 2 views. PA and Lateral COMPARISON: CR XR CHEST 2V 11/21/2023 4:36 PM FINDINGS: Tubes, catheters and devices: None. Lungs: The lungs appear clear without pulmonary venous congestion. Pleural spaces: No pleural effusion. No pneumothorax. Heart/Mediastinum: Central calcified mediastinum lymph nodes. Stable finding. The mediastinum appears otherwise unremarkable. Bones/joints: Diffusely decreased bone density. Mild generalized bony degenerative changes. Bony structures appear otherwise unremarkable. IMPRESSION: No acute abnormality identified.
[2024-10-26 15:22] VITALS: BP 138/92; PULSE 88; RESP 18; TEMP 36.9; O2SAT 98; BMI 33.3
--- NOTE | 2024-10-26 15:35 | ED_ITS ---
Discharge Plan Disposition Patient Disposition: Home, Self-Care Condition: Good Prescriptions Prescriptions: New azithromycin [Zithromax] 250 mg tablet 250 mg PO UD DOSE PK Qty: 6 0RF Rx Instructions: Take two (2) tablets today, then one (1) tablet days #2 thru #5 benzonatate 100 mg capsule 100 mg PO TIDP PRN (Reason: Cough) Qty: 30 0RF methylprednisolone 4 mg Tablets,Dose Pack 4 mg PO DIRECTED 6 Days Qty: 21 0RF Rx Instructions: Take 1 pack as directed for 6 days promethazine-DM 6.25-15 mg/5 mL Syrup 5 ml PO Q6H PRN (Reason: Cough) Qty: 240 0RF No Action glimepiride 4 mg tablet 4 mg PO DAILY Patient Comments: TAKE 1 TABLET BY MOUTH TWICE DAILY pioglitazone 30 mg tablet 30 mg PO DAILY Patient Comments: TAKE 1 TABLET BY MOUTH ONCE DAILY dapagliflozin propanediol [Farxiga] 10 mg tablet 10 mg PO DAILY Patient Comments: TAKE 1 TABLET BY MOUTH ONCE DAILY Rybelsus 14 mg tablet 14 mg PO DAILY Patient Comments: TAKE 1 TABLET BY MOUTH ONCE DAILY meclizine 25 mg tablet 25 mg PO TID PRN (Reason: dizziness) Qty: 12 0RF Referrals Follow up/Referrals: Sarah Vo APRN [Primary Care Provider] - See instructions Activity Restrictions/Add. Instructions Additional Instructions/Restrictions: Drink plenty of fluids. Take tylenol or ibuprofen for pain or fever. Take the medications as directed. Follow up with your regular doctor. GO TO THE ER FOR ANY WORSENING SYMPTOMS Clinical Impressions Clinical Impression: Bronchitis Instructions Patient Instructions: Acute Bronchitis, DI for Acute Bronchitis Print Language Print Language: Mongolian Discharge ED Provider: Edwar Martinez [facility] [place] HPI General Stated complaint: Chest congestion, cough Mode of Arrival: Ambulatory Source of Information: Patient Time Seen by Provider: 10/26/24 15:34 Description of Symptoms (Recalled from Triage Doc. by RN): CHEST CONGESTION HEENT Symptoms (Recalled from RN notes): Yes Resp Symptoms (Recalled from RN notes): Yes Skin Symptoms (Recalled from RN notes): No MS Symptoms (Recalled from RN notes): No Functional Status (Recalled from RN notes): WNL Related Data Home Medications ?Medication ?Instructions ?Recorded ?Confirmed dapagliflozin propanediol 10 mg 10 mg PO DAILY 06/28/24 10/26/24 tablet (Farxiga) glimepiride 4 mg tablet 4 mg PO DAILY 06/28/24 10/26/24 pioglitazone 30 mg tablet 30 mg PO DAILY 06/28/24 06/28/24 semaglutide 14 mg tablet (Rybelsus) 14 mg PO DAILY 06/28/24 10/26/24 Previous Rx's ?Medication ?Instructions ?Recorded meclizine 25 mg tablet 25 mg PO TID PRN dizziness #12 tabs 06/28/24 azithromycin 250 mg tablet 250 mg PO UD DOSE PK #6 tabs 10/26/24 (Zithromax) benzonatate 100 mg capsule 100 mg PO TIDP PRN Cough #30 caps 10/26/24 methylprednisolone 4 mg tablets in 4 mg PO DIRECTED 6 days #21 tabs 10/26/24 a dose pack promethazine-DM 6.25 mg-15 mg/5 mL 5 ml PO Q6H PRN Cough #240 mL 10/30/24 oral syrup Allergies Allergy/AdvReac Type Severity Reaction Status Date / Time No Known Allergies Allergy Verified 11/21/23 17:06 Worker's Comp Is this a Worker's Comp case?: No [facility] [place] Disclaimer: The information contained in this section may have been updated after the patient was seen, as this information can be updated by other users. Medical History Diabetes mellitus, type 2 Surgical History History of back surgery Social History Smoking Status: Never smoker alcohol intake: never current occupational status: employed Travel in the last 8 weeks: None household members: family housing: house Have you lived/traveled outside US in past 30 days?: No Contact w/someone who lives/traveled outside US past 30 days?: No Exposure to someone with infectious disease in past 14 days?: No Do you have a fever (greater than 100.4 F or 38 C)?: No Have you tested positive for COVID-19: No Exposed to someone with COVID-19 in past 14 days?: No Do you have a sore throat?: No Do you have a cough?: Yes Do you have any weakness?: No Do you have any diarrhea?: No Are you experiencing any unusual bleeding?: No Do you have any muscle aches/pain?: No Do you have any abdominal pain?: No Are you experiencing loss of taste or smell?: No ROS Obtained: Yes All systems reviewed & no additional complaints except as documented Constitutional Constitutional: Reports chills and Reports fever(s) Eyes Eyes: Denies eye discharge ENT Ears, Nose, Mouth, and Throat: Reports as per HPI Cardiovascular Cardiovascular: Denies chest pain Respiratory Respiratory: Denies chest congestion and Reports cough Gastrointestinal Gastrointestingal: Reports nausea; Denies abdominal pain, constipation, cramping, diarrhea or vomiting Musculoskeletal Musculoskeletal: Denies arthralgias Integumentary/Breasts Skin/Breast: Denies rash Neurologic Neurologic: Denies paresthesias Physical Exam General General appearance: alert and in no apparent distress Eye Eye exam: Present normal appearance, PERRL and EOMI ENT ENT exam: Present mucous membranes moist and normal external ear exam Expanded ENT Exam External ear exam: Present normal external inspection TM/Canal exam: Bilateral TM: erythema and bulging Nose exam: Absent sinus tenderness Nasal speculum exam: Bilateral: normal Mouth exam: Present normal external inspection; Absent drooling Teeth exam: Present normal inspection Throat exam: Present tonsillar erythema and tonsillomegaly Neck Neck exam: Present normal inspection, full ROM and trachea midline; Absent tenderness, lymphadenopathy or thyromegaly Chest Chest inspection: Present normal inspection and symmetric chest wall rise; Absent tenderness or rash Respiratory Respiratory exam: Present normal lung sounds bilaterally; Absent respiratory distress, wheezes, stridor or accessory muscle use Cardiovascular Cardiovascular exam: Present regular rate, normal rhythm and normal heart sounds Abdominal Exam Abdominal exam: Present soft; Absent distention, tenderness, guarding, rebound or rigidity Extremities Exam Extremities exam: Present normal inspection, full ROM and normal capillary refill; Absent tenderness or calf tenderness Back Exam Back exam: Present normal inspection and full ROM; Absent tenderness Neurological Exam Neurological exam: Present alert and oriented X3 Psychiatric Psychiatric exam: Present normal affect and normal mood Skin Skin exam: Present warm, dry, intact and normal color Lymphatic Lymphatic Findings: no adenopathy Medical Decision Making Medical Records Medical records reviewed: No I reviewed the patient's medical records. Screening: Per USPSTF and CDC recommendations, given the prevalence of disease in our region, it is our hospital?s policy to screen for HIV and viral Hepatitis for all patients aged 18 and over and those with ongoing risk factors. Phillip Inquiry Pt receiving controlled substance: No Vital Signs: 10/26/24 15:22 Temperature 98.4 F Temperature Source Oral Pulse Rate [Left Radial] 88 Respiratory Rate 18 Blood Pressure [Left Arm] 138/92 H Blood Pressure Mean [Left Arm] 107 02 Sat by Pulse Oximetry 98 Lab Data Lab results reviewed: Yes I reviewed the patient's lab results. Orders (Tests/Meds): ORDERS Category Date Time Status Chest XR 2 view (NOT portable) [XR chest 2V] Stat Exams 10/26/24 14:36 Taken
[2024-10-26] MEDS: cefTRIAXone 1GM VIAL 1 GM IM (15:39)
[2024-10-26] MEDS: LIDOCAINE 1% 5ML PF VIAL IM (15:40)
[2024-10-26] MEDS: DEXAMETHASONE 4MG/ML 1ML VIAL 8 MG IM (15:40)
[2024-10-26 15:56] VITALS: BP 138/92; PULSE 88; RESP 18; TEMP 36.9
[2024-10-26 16:12] LABS: Coronavirus 19, PCR Not Detected (NotDetected); Influenza A, PCR Not Detected (NotDetected); Influenza B, PCR Not Detected (NotDetected)
== END 2024-10-26 15:57 | disposition home or self-care (01) ==
PROVIDERS: Emergency Provider Nurse Practitioner Family; PCP Nurse Practitioner Family
DX: J20.9 Acute bronchitis, unspecified (principal)
CPT/HCPCS: 71046; 87636; 96372; 99213; G0381; J0696; J1100

== ENCOUNTER 2024-11-03 08:41 | Emergency (ER) | payer OTHER, SELFPAY ==
[2024-11-03 08:50] VITALS: BP 131/84; PULSE 81; RESP 17; TEMP 36.7; O2SAT 98; BMI 32.7
--- NOTE | 2024-11-03 08:56 | ED_ITS ---
Discharge Plan Disposition Patient Disposition: Home, Self-Care Condition: Good Prescriptions Prescriptions: New doxycycline hyclate 100 mg capsule 100 mg PO BID Qty: 20 0RF benzonatate 100 mg capsule 100 mg PO TID PRN (Reason: cough) Qty: 30 0RF albuterol sulfate 90 mcg/actuation HFA aerosol inhaler 2 puff inhalation Q6H PRN (Reason: shortness of breath or wheezing) Qty: 8.5 0RF fluticasone propionate [Flonase Allergy Relief] 50 mcg/actuation spray,suspension 2 spray intranasal DAILY Qty: 16 0RF Rx Instructions: administer into each nostril daily No Action simvastatin 10 mg tablet 10 mg PO DAILY Patient Comments: TAKE 1 TABLET BY MOUTH ONCE DAILY aspirin 81 mg tablet,delayed release (DR/EC) 81 mg PO DAILY Patient Comments: TAKE 1 TABLET BY MOUTH ONCE DAILY glimepiride 4 mg tablet 4 mg PO BID Patient Comments: TAKE 1 TABLET BY MOUTH TWICE DAILY pioglitazone 30 mg tablet 30 mg PO DAILY Patient Comments: TAKE 1 TABLET BY MOUTH ONCE DAILY lisinopril 2.5 mg tablet 2.5 mg PO DAILY Patient Comments: TAKE 1 TABLET BY MOUTH ONCE DAILY dapagliflozin propanediol [Farxiga] 10 mg tablet 10 mg PO DAILY Patient Comments: TAKE 1 TABLET BY MOUTH ONCE DAILY Rybelsus 14 mg tablet 14 mg PO DAILY Patient Comments: TAKE 1 TABLET BY MOUTH ONCE DAILY promethazine-DM 6.25-15 mg/5 mL Syrup 5 ml PO Q6H PRN (Reason: Cough) Qty: 240 0RF Referrals Follow up/Referrals: Sarah Vo APRN [Primary Care Provider] - See instructions Activity Restrictions/Add. Instructions Additional Instructions/Restrictions: * Start antibiotic today. Be sure to complete entire prescription even if feeling better * Monitor temp. Tylenol every 4 hours as needed and / or ibuprofen every 6 hours as needed ( As long as your primary care physician has told you that it ok to take both. For fever/aches/pains ER if no less than 101 despite Tylenol or Motrin * Humidifier/vaporizer or hot steamy shower * Inhaler every 4-6 hours as needed like we discussed. If unsure how to use it, ask pharmacist to demonstrate how. Should help open airways and i mprove cough, wheezing, and shortness of breath * *Tessalon Perles will not cause drowsiness but use at bedtime to help stop cough so that you may get some rest. Follow up IMMEDIATELY for new or worsening of symptoms OR no noticeable improvement over the next 48-72 hours. 911 immediately for any life threatening symptoms such as chest pain or difficulty breathing Clinical Impressions Clinical Impression: Bronchitis Sinusitis Qualifiers: Sinusitis location: unspecified location Chronicity: unspecified Qualified Code(s): J32.9 - Chronic sinusitis, unspecified Instructions Patient Instructions: Acute Bronchitis, DI for Sinusitis, DI for Acute Bronchitis Print Language Print Language: Libyan Discharge ED Provider: Essence Mason [facility] [place] General Stated complaint: cough, congestion Mode of Arrival: Ambulatory Source of Information: Patient Limitations: No Limitations Time Seen by Provider: 11/03/24 08:56 Description of Symptoms (Recalled from Triage Doc. by RN): PATIENT C/O CHEST CONGESTION X 2 WEEKS HEENT Symptoms (Recalled from RN notes): No Resp Symptoms (Recalled from RN notes): Yes Skin Symptoms (Recalled from RN notes): No MS Symptoms (Recalled from RN notes): No Functional Status (Recalled from RN notes): WNL History of Present Illness Provider Complaint: Patient states that he has been having cough and congestion with sinus congestion for several weeks States that the cough and congestion is still not better after zpack States that he had chest xray last week and it was negative States that last night he was up most of the night with coughing and congestion so he came in today to see if there was something else to help Related Data Home Medications ?Medication ?Instructions ?Recorded ?Confirmed aspirin 81 mg tablet,delayed 81 mg PO DAILY 11/03/24 11/03/24 release dapagliflozin propanediol 10 mg 10 mg PO DAILY 11/03/24 11/03/24 tablet (Farxiga) glimepiride 4 mg tablet 4 mg PO BID 11/03/24 11/03/24 lisinopril 2.5 mg tablet 2.5 mg PO DAILY 11/03/24 11/03/24 pioglitazone 30 mg tablet 30 mg PO DAILY 11/03/24 11/03/24 semaglutide 14 mg tablet (Rybelsus) 14 mg PO DAILY 11/03/24 11/03/24 simvastatin 10 mg tablet 10 mg PO DAILY 11/03/24 11/03/24 Previous Rx's ?Medication ?Instructions ?Recorded promethazine-DM 6.25 mg-15 mg/5 mL 5 ml PO Q6H PRN Cough #240 mL 10/30/24 oral syrup albuterol sulfate 90 mcg/actuation 2 puff inhalation Q6H PRN 11/03/24 aerosol inhaler shortness of breath or wheezing #8.5 grams benzonatate 100 mg capsule 100 mg PO TID PRN cough #30 caps 11/03/24 doxycycline hyclate 100 mg capsule 100 mg PO BID #20 caps 11/03/24 fluticasone propionate 50 2 spray intranasal DAILY #16 grams 11/03/24 mcg/actuation nasal spray,suspension (Flonase Allergy Relief) Allergies Allergy/AdvReac Type Severity Reaction Status Date / Time No Known Allergies Allergy Verified 11/21/23 17:06 Worker's Comp Is this a Worker's Comp case?: No [facility] Disclaimer: The information contained in this section may have been updated after the patient was seen, as this information can be updated by other users. Medical History Diabetes mellitus, type 2 Surgical History History of back surgery Social History Smoking Status: Never smoker alcohol intake: never current occupational status: employed Travel in the last 8 weeks: None household members: family housing: house Have you lived/traveled outside US in past 30 days?: No Contact w/someone who lives/traveled outside US past 30 days?: No Exposure to someone with infectious disease in past 14 days?: No Do you have a fever (greater than 100.4 F or 38 C)?: No Have you tested positive for COVID-19: No Exposed to someone with COVID-19 in past 14 days?: No Do you have a sore throat?: No Do you have a cough?: Yes Do you have any weakness?: No Do you have any diarrhea?: No Are you experiencing any unusual bleeding?: No Do you have any muscle aches/pain?: No Do you have any abdominal pain?: No Are you experiencing loss of taste or smell?: No ROS Obtained: Yes All systems reviewed & no additional complaints except as documented and Yes Systems reviewed as appropriate & no additional complaints except as documented Constitutional Constitutional: Reports system reviewed and no additional complaints, except as documented and Reports as per HPI ENT Ears, Nose, Mouth, and Throat: Reports system reviewed and no additional complaints, except as documented, Reports as per HPI, Reports sinus pain and Re ports sinus pressure Cardiovascular Cardiovascular: Reports system reviewed and no additional complaints, except as documented and Reports as per HPI Respiratory Respiratory: Reports system reviewed and no additional complaints, except as documented, Reports as per HPI, Denies shortness of breath, Reports chest congestion, Reports cough and Denies wheezing Gastrointestinal Gastrointestingal: Reports system reviewed and no additional complaints, except as documented and as per HPI Genitourinary Male Genitourinary: Reports system reviewed and no additional complaints, except as documented and Reports as per HPI Musculoskeletal Musculoskeletal: Reports system reviewed and no additional complaints, except as documented and Reports as per HPI Allergic/Immunologic Allergic/Immunologic: Denies wheezing Physical Exam General General appearance: alert and in no apparent distress Expanded ENT Exam Nose exam: Present sinus tenderness Throat exam: Present other (PND noted) Chest Chest inspection: Present normal inspection and symmetric chest wall rise Respiratory Respiratory exam: Present normal lung sounds bilaterally; Absent respiratory distress or wheezes Cardiovascular Cardiovascular exam: Present regular rate, normal rhythm and normal heart sounds Neurological Exam Neurological exam: Present alert, oriented X3 and normal gait Medical Decision Making Medical Records Screening: Per USPSTF and CDC recommendations, given the prevalence of disease in our region, it is our hospital?s policy to screen for HIV and viral Hepatitis for all patients aged 18 and over and those with ongoing risk factors. Phillip Inquiry Pt receiving controlled substance: No Phillip was queried for this patient: No Vital Signs: 11/03/24 08:50 Temperature 98.1 F Temperature Source Oral Pulse Rate [Left Brachial] 81 Respiratory Rate 17 Blood Pressure [Left Arm] 131/84 Blood Pressure Mean [Left Arm] 99 Blood Pressure Source [Left Arm] Automatic Cuff Blood Pressure Position [Left Arm] Sitting 02 Sat by Pulse Oximetry 98 Oxygen Delivery Method Room Air
[2024-11-03] MEDS: METHYLPREDNISOLONE SOD SUCC 125MG VIAL 125 MG IM (09:20)
[2024-11-03 09:36] VITALS: BP 131/84; PULSE 81; RESP 17; TEMP 36.7; O2SAT 98
== END 2024-11-03 09:39 | disposition home or self-care (01) ==
PROVIDERS: Emergency Provider Nurse Practitioner; PCP Nurse Practitioner Family
DX: J20.9 Acute bronchitis, unspecified (principal); J32.9 Chronic sinusitis, unspecified
CPT/HCPCS: 96372; 99213; G0381; J2919

== ENCOUNTER 2024-11-14 17:19 | Emergency (ER) | payer OTHER, SELFPAY ==
[2024-11-14 17:23] VITALS: BP 123/83; PULSE 77; RESP 18; TEMP 36.6; O2SAT 99; BMI 33.8
--- NOTE | 2024-11-14 17:25 | ED_ITS ---
Discharge Plan Disposition Patient Disposition: Home, Self-Care Condition: Good Prescriptions Prescriptions: New promethazine-DM 6.25-15 mg/5 mL Syrup 5 ml PO Q6H PRN (Reason: Cough) Qty: 240 0RF methylprednisolone 4 mg Tablets,Dose Pack 4 mg PO DIRECTED 6 Days Qty: 21 0RF Rx Instructions: Take 1 pack as directed for 6 days No Action simvastatin 10 mg tablet 10 mg PO DAILY Patient Comments: TAKE 1 TABLET BY MOUTH ONCE DAILY aspirin 81 mg tablet,delayed release (DR/EC) 81 mg PO DAILY Patient Comments: TAKE 1 TABLET BY MOUTH ONCE DAILY glimepiride 4 mg tablet 4 mg PO BID Patient Comments: TAKE 1 TABLET BY MOUTH TWICE DAILY pioglitazone 30 mg tablet 30 mg PO DAILY Patient Comments: TAKE 1 TABLET BY MOUTH ONCE DAILY lisinopril 2.5 mg tablet 2.5 mg PO DAILY Patient Comments: TAKE 1 TABLET BY MOUTH ONCE DAILY dapagliflozin propanediol [Farxiga] 10 mg tablet 10 mg PO DAILY Patient Comments: TAKE 1 TABLET BY MOUTH ONCE DAILY Rybelsus 14 mg tablet 14 mg PO DAILY Patient Comments: TAKE 1 TABLET BY MOUTH ONCE DAILY doxycycline hyclate 100 mg capsule 100 mg PO BID Qty: 20 0RF benzonatate 100 mg capsule 100 mg PO TID PRN (Reason: cough) Qty: 30 0RF albuterol sulfate 90 mcg/actuation HFA aerosol inhaler 2 puff inhalation Q6H PRN (Reason: shortness of breath or wheezing) Qty: 8.5 0RF fluticasone propionate [Flonase Allergy Relief] 50 mcg/actuation spray,suspension 2 spray intranasal DAILY Qty: 16 0RF Rx Instructions: administer into each nostril daily promethazine-DM 6.25-15 mg/5 mL Syrup 5 ml PO Q6H PRN (Reason: Cough) Qty: 240 0RF Referrals Follow up/Referrals: Sarah Vo APRN [Primary Care Provider] - See instructions Activity Restrictions/Add. Instructions Additional Instructions/Restrictions: Drink plenty of fluids. Take the medications as directed. Follow up with your regular doctor. GO TO THE ER FOR ANY WORSENING SYMPTOMS The cough medication (promethazine dm) will make you drowsy, so don't drive or operate heavy machinery after taking it. Clinical Impressions Clinical Impression: Acute bronchitis Instructions Patient Instructions: Acute Bronchitis, DI for Acute Bronchitis Print Language Print Language: Israeli Discharge ED Provider: Edwar Martinez [facility] [place] [facility] [place] General Stated complaint: congestion,cough Mode of Arrival: Ambulatory Source of Information: Patient Time Seen by Provider: 11/14/24 17:25 Description of Symptoms (Recalled from Triage Doc. by RN): COUGH, CONGESTION HEENT Symptoms (Recalled from RN notes): No Resp Symptoms (Recalled from RN notes): Yes Skin Symptoms (Recalled from RN notes): No MS Symptoms (Recalled from RN notes): No Functional Status (Recalled from RN notes): WNL Related Data Home Medications ?Medication ?Instructions ?Recorded ?Confirmed aspirin 81 mg tablet,delayed 81 mg PO DAILY 11/03/24 11/03/24 release dapagliflozin propanediol 10 mg 10 mg PO DAILY 11/03/24 11/03/24 tablet (Farxiga) glimepiride 4 mg tablet 4 mg PO BID 11/03/24 11/03/24 lisinopril 2.5 mg tablet 2.5 mg PO DAILY 11/03/24 11/03/24 pioglitazone 30 mg tablet 30 mg PO DAILY 11/03/24 11/03/24 semaglutide 14 mg tablet (Rybelsus) 14 mg PO DAILY 11/03/24 11/03/24 simvastatin 10 mg tablet 10 mg PO DAILY 11/03/24 11/03/24 Previous Rx's ?Medication ?Instructions ?Recorded promethazine-DM 6.25 mg-15 mg/5 mL 5 ml PO Q6H PRN Cough #240 mL 10/30/24 oral syrup albuterol sulfate 90 mcg/actuation 2 puff inhalation Q6H PRN 11/03/24 aerosol inhaler shortness of breath or wheezing #8.5 grams benzonatate 100 mg capsule 100 mg PO TID PRN cough #30 caps 11/03/24 doxycycline hyclate 100 mg capsule 100 mg PO BID #20 caps 11/03/24 fluticasone propionate 50 2 spray intranasal DAILY #16 grams 11/03/24 mcg/actuation nasal spray,suspension (Flonase Allergy Relief) methylprednisolone 4 mg tablets in 4 mg PO DIRECTED 6 days #21 tabs 11/14/24 a dose pack promethazine-DM 6.25 mg-15 mg/5 mL 5 ml PO Q6H PRN Cough #240 mL 11/14/24 oral syrup Allergies Allergy/AdvReac Type Severity Reaction Status Date / Time No Known Allergies Allergy Verified 11/21/23 17:06 Worker's Comp Is this a Worker's Comp case?: No [facility] Disclaimer: The information contained in this section may have been updated after the patient was seen, as this information can be updated by other users. Medical History Diabetes mellitus, type 2 Surgical History History of back surgery Social History Smoking Status: Never smoker alcohol intake: never current occupational status: employed Travel in the last 8 weeks: None household members: family housing: house Have you lived/traveled outside US in past 30 days?: No Contact w/someone who lives/traveled outside US past 30 days?: No Exposure to someone with infectious disease in past 14 days?: No Do you have a fever (greater than 100.4 F or 38 C)?: No Have you tested positive for COVID-19: No Exposed to someone with COVID-19 in past 14 days?: No Do you have a sore throat?: Yes Do you have a cough?: Yes Do you have any weakness?: No Do you have any diarrhea?: No Are you experiencing any unusual bleeding?: No Do you have any muscle aches/pain?: No Do you have any abdominal pain?: No Are you experiencing loss of taste or smell?: No ROS Obtained: Yes All systems reviewed & no additional complaints except as documented Constitutional Constitutional: Reports poor appetite Eyes Eyes: Reports system reviewed and no additional complaints, except as documented ENT Ears, Nose, Mouth, and Throat: Reports as per HPI Cardiovascular Cardiovascular: Reports system reviewed and no additional complaints, except as documented and Denies chest pain Respiratory Respiratory: Denies shortness of breath, Reports chest congestion, Reports cough, Denies stridor and Denies wheezing Gastrointestinal Gastrointestingal: Reports system reviewed and no additional complaints, except as documented; Denies abdominal pain, diarrhea or vomiting Musculoskeletal Musculoskeletal: Reports system reviewed and no additional complaints, except as documented and Denies arthralgias Integumentary/Breasts Skin/Breast: Reports system reviewed and no additional complaints, except as documented and Denies rash Neurologic Neurologic: Denies paresthesias Allergic/Immunologic Allergic/Immunologic: Denies wheezing Physical Exam General General appearance: alert and in no apparent distress Head Head exam: atraumatic, normocephalic and normal inspection Eye Eye exam: Present normal appearance, PERRL and EOMI ENT ENT exam: Present normal exam, normal oropharynx, mucous membranes moist, TM's normal bilaterally and normal external ear exam Neck Neck exam: Present normal inspection, full ROM and trachea midline; Absent meningismus or lymphadenopathy Chest Chest inspection: Present normal inspection and symmetric chest wall rise; Absent tenderness Respiratory Respiratory exam: Present normal lung sounds bilaterally; Absent respiratory distress Cardiovascular Cardiovascular exam: Present regular rate and normal rhythm; Absent JVD Abdominal Exam Abdominal exam: Present soft and normal bowel sounds; Absent distention, tenderness or guarding Extremities Exam Extremities exam: Present normal inspection, full ROM and normal capillary refill; Absent calf tenderness Back Exam Back exam: Present normal inspection; Absent tenderness Neurological Exam Neurological exam: Present alert and oriented X3 Psychiatric Psychiatric exam: Present normal affect and normal mood Skin Skin exam: Present warm, dry, intact and normal color Lymphatic Lymphatic Findings: no adenopathy Medical Decision Making Medical Records Medical records reviewed: No I reviewed the patient's medical records. Screening: Per USPSTF and CDC recommendations, given the prevalence of disease in our region, it is our hospital?s policy to screen for HIV and viral Hepatitis for all patients aged 18 and over and those with ongoing risk factors. Phillip Inquiry Pt receiving controlled substance: No Vital Signs: 11/14/24 17:23 Temperature 97.9 F Temperature Source Oral Pulse Rate [Left Radial] 77 Respiratory Rate 18 Blood Pressure [Left Arm] 123/83 Blood Pressure Mean [Left Arm] 96 02 Sat by Pulse Oximetry 99
[2024-11-14] MEDS: DEXAMETHASONE 4MG/ML 1ML VIAL 8 MG IM (17:37)
[2024-11-14 18:15] VITALS: BP 123/83; PULSE 77; RESP 18; TEMP 36.6
[2024-11-14 19:43] LABS: Coronavirus 19, PCR Not Detected (NotDetected); Influenza A, PCR Not Detected (NotDetected); Influenza B, PCR Not Detected (NotDetected)
== END 2024-11-14 18:15 | disposition home or self-care (01) ==
PROVIDERS: Emergency Provider Nurse Practitioner Family; PCP Nurse Practitioner Family
DX: J20.9 Acute bronchitis, unspecified (principal)
CPT/HCPCS: 87636; 96372; 99213; G0381; J1100

== ENCOUNTER 2025-03-25 10:58 | Outpatient (CLI) | payer OTHER, SELFPAY ==
--- NOTE | 2025-03-25 11:01 | XR_ITS ---
FINAL REPORT TECHNIQUE: Chest PA & Lateral CLINICAL HISTORY: cough x1 week COMPARISON: 09/08/2022 FINDINGS: 2 views of the chest were performed. The heart size is normal. The mediastinum is within normal limits. There is no acute cardiopulmonary process. Mild chronic changes are noted at the lung bases. There are no pleural effusions. There is no pneumothorax. The bony thorax appears intact. IMPRESSION: Chronic changes without acute cardiopulmonary process. Reviewed, Interpreted and Dictated by Hemal Thomas MD Transcribed by Shakila Estrella Authenticated and . [facility]
== END 2025-03-25 23:59 | disposition home or self-care (01) ==
LOC: RAD 10:59
PROVIDERS: PCP Nurse Practitioner Family; Visit Provider Student in an Organized Health Care Education/Training Program
DX: R91.8 Other nonspecific abnormal finding of lung field (principal); R05.9 Cough, unspecified
CPT/HCPCS: 71046

== ENCOUNTER 2025-06-20 06:59 | Outpatient (CLI) | payer OTHER, SELFPAY ==
--- NOTE | 2025-06-20 07:06 | XR_ITS ---
FINAL REPORT CLINICAL HISTORY: Evaluate Left Foot Pain COMPARISON: None FINDINGS: LEFT FOOT Three views demonstrate no acute fracture or dislocation. The joint spaces appear normal. No acute soft tissue abnormality is seen. IMPRESSION: No acute bony abnormality. Reviewed, Interpreted and Dictated by Hemal Thomas MD Transcribed by Mayda Decker Authenticated and [facility]
[2025-06-20 07:39] LABS: Hematocrit 47.5 % (42.0-52.0); Hemoglobin 15.5 g/dL (14.1-18.0); Immature Granulocytes % 0.6 %; Mean Corpuscular HGB Conc 32.6 g/dL (31.8-35.4); Mean Corpuscular Hemoglobin 27.7 pg (27.0-31.2); Mean Corpuscular Volume 84.8 fl (80-94); Nucleated Red Blood Cells % 0 %; Platelet Count 191 K/mm3 (142-424); Red Blood Count 5.60 M/mm3 (4.60-6.20); Red Cell Distribution Width-SD 37.0 fL; White Blood Count 5.3 K/mm3 (4.8-10.8)
[2025-06-20 07:54] LABS: Hemoglobin A1C 9.3 % (4.0-6.0)
[2025-06-20 08:27] LABS: Albumin Level 4.6 g/dl (3.5-5.0); Chloride 108 mmol/L (98-107)
[2025-06-20 08:28] LABS: Potassium 4.5 mmoL/L (3.5-5.1); Sodium 138 mmol/L (136-145)
[2025-06-20 08:30] LABS: Alanine Aminotransferase 23 U/L (12-78); Albumin/Globulin Ratio 1.9 (1.1-1.8); Anion Gap 11.5 mEq/L (5-15); Aspartate Amino Transferase 24 U/L (17-59); Blood Urea Nitrogen 22 mg/dl (9-20); Carbon Dioxide 23 mmol/L (22.0-30.0); Creatinine,Serum 0.70 mg/dl (0.66-1.25); Estimated Glomerular Filt Rate 119 ml/min (>60); GFR (African American) 144 ML/MIN (>60); Globulin 2.4 g/dL (1.3-3.2); Total Protein,Serum 7.0 g/dl (6.3-8.2)
[2025-06-20 08:31] LABS: Alkaline Phosphatase 95 U/L (38-126); Bilirubin,Total 0.6 mg/dl (0.2-1.3); Calcium 9.7 mg/dl (8.4-10.2); Cholesterol 203 mg/dl (140-200); Glucose 237 mg/dl (74-100); HDL Cholesterol 50 mg/dl (40-60); Triglycerides 218 mg/dl (30-150)
[2025-06-20 10:05] LABS: Uric Acid 5.8 mg/dl (3.5-8.5)
== END 2025-06-20 23:59 | disposition home or self-care (01) ==
LOC: LAB 07:01
PROVIDERS: PCP Nurse Practitioner Family; Visit Provider Nurse Practitioner Family
DX: M79.672 Pain in left foot (principal); E11.9 Type 2 diabetes mellitus without complications
CPT/HCPCS: 36415; 73630; 80053; 80061; 82043; 82570; 83036; 84550; 85025

== ENCOUNTER 2025-07-03 15:18 | Outpatient (CLI) | payer OTHER, SELFPAY ==
--- NOTE | 2025-07-03 15:21 | MR_ITS ---
FINAL REPORT TECHNIQUE: Multiplanar and multisequence imaging of the cervical spine was obtained. CLINICAL HISTORY: CERVICALGIA LEFT 4TH AND 5TH DIGITS TINGLING RECENT HEADACHES AND STIFFNESS IN NECK COMPARISON: None FINDINGS: Alignment is normal. Vertebral body height is preserved. Signal intensity within the substance of the spinal cord is normal. No acute bone marrow edema. No acute paraspinal abnormality. C2/3: No focal disc herniation, central canal stenosis, or neural foraminal narrowing. C3/4: An annular bulge is present with degenerative endplate changes and facet osteoarthropathy. There is no central canal stenosis, however there is mild right neural foraminal narrowing. C4/5: An annular bulge is present with degenerative endplate changes and facet osteoarthropathy. There is a superimposed left paracentral disc protrusion with mild canal stenosis, asymmetric to the left, with mild bilateral neural foraminal narrowing. C5/6: An annular bulge is present with endplate degenerative changes and facet osteoarthropathy. There is a left paracentral disc protrusion which contacts the anterior thecal sac and may contact the spinal cord. There is mild to moderate canal stenosis asymmetric to the left and mild bilateral neural foraminal narrowing. C6/7: There is a right paracentral disc protrusion, with mild right neural foraminal narrowing. C7/T1: No focal disc herniation, central canal stenosis, or neural foraminal narrowing. IMPRESSION: Multilevel cervical degenerative changes present, most pronounced at the C4-5 and C5-6 levels. Reviewed, Interpreted and Dictated by Chiara Pedroza MD Transcribed by Mary lUloa Authenticated and [facility]
== END 2025-07-03 23:59 | disposition home or self-care (01) ==
LOC: RAD 15:19
PROVIDERS: PCP Nurse Practitioner Family; Visit Provider Nurse Practitioner Family
DX: M47.812 Spondylosis without myelopathy or radiculopathy, cervical region (principal)
CPT/HCPCS: 72141

== ENCOUNTER 2025-09-19 08:49 | Outpatient (CLI) | payer OTHER, SELFPAY ==
--- OUTSIDE RECORDS SUMMARY | 2024-05-07 06:30 | XMS_ITS ---
Author Organization [facility] Address [address] [facility] [address] [place] [id number] Care Team Providers Care Television Operator Name Role Phone Gera Ferguson Primary Care Provider [phone] Delaney Zapata Unavailable [phone] Allergies No Known Allergies Results Component Value Reference Range Notes CBC Venipuncture (in house) Reviewed date:05/07/2024 01:47:05 PM Interpretation: Performing Lab: Notes/Report: wbc 6.9 3.5 - 10 lymph 23.9% 15 - 50 mid 5.8% 2 - 15 gran 70.3% 35 - 80 rbc 5.95 3.5 - 5.5 hgb 16.8 11.5 - 16.5 hct 51.0 35 - 55 mcv 85.8 75 - 100 mch 28.2 25 - 35 mchc 32.9 31 - 38 platlet 197 100 - 400 Diarrhea Panel ([facility]) Reviewed date:05/10/2024 08:55:36 AM Interpretation: Performing Lab: Notes/Report: P-Comprehensive Metabolic Pa leonora (CMP) Reviewed date:05/09/2024 12:40:28 PM Interpretation:gluc 117 Performing Lab: Notes/Report: Test performed by [facility], [email or web address] [facility] , [address], [place] [address] Ezequiel Owusu MD, Geotechnical Intern CLIA: [id number] Sodium 140 135-145 mmol/L Potassium 4.0 3.5-5.3 mmol/L Chloride 101 97-108 mmol/L CO2 22 22-32 mmol/L Glucose 117 65-99 mg/dL BUN 15 6-20 mg/dL Creatinine 0.90 0.70-1.30 mg/dL Calcium 9.7 8.6-10.4 mg/dL eGFR by Creatinine 104 >59 mL/min/1.73m2 Protein 6.9 6.0-8.3 g/dL Albumin 4.7 3.5-5.3 g/dL Alkaline Phosphatase 129 40-129 IU/L ALT (SGPT) 25 <5-55 IU/L AST (SGOT) 23 <5-46 IU/L Bilirubin, Total 0.6 <0.2-1.2 mg/dL A/G Ratio 2.1 1.1-2.5 mg/dL REASON FOR VISIT stomach pain Medications Medication SIG (Take, Route, Frequency, Duration) Notes Start Date End Date Status Glimepiride 4 MG 1 tab(s) orally 2 ti mes a day; Duration: 30 days Active Pioglitazone HCl 30 MG 1 tablet Orally O nce a day; Duration: 90 days Active Ezetimibe 10 MG 1 tablet Orally Once a day 09/09/2023 Active Rybelsus 14 MG 1 tab(s) orally once a day; Duration: 30 days Active Farxiga 10 MG 1 tablet Orally Once a day; Duration: 90 days Active Meloxicam 15 MG 1 tab(s) orally once a day; Duration: 30 day(s) 05/10/2021 Active Rosuvastatin Calcium 20 MG 1 tablet Oral ly Once a day; Duration: 90 days 12/16/2023 Active Loratadine 10 MG 1 tab(s) orally once a day; Duration: 90 Active Hyoscyamine Sulfate 0.125 MG 1 tablet as needed Orally ac and hs; Duration: 7 days 05/07/2024 Active Vital Signs Blood pressure systolic 124 mm Hg 05/07/20 24 Blood pressure diastolic 80 mm Hg 024 Heart Rate 90 /min 05/07/2024 Height 69.50 in 05/07/2024 Weight 220.6 lbs 05/07/2024 BMI 32.11 kg/m2 05/07/2024 Encounters Encounter Location Date Provider Diagnosis [facility] [address] [facility] [address], [place] [id number] 05/07/2024 Delaney Corralesond Diarrhea R19. 7 Assessments Encounter Date Diagnosis (ICD Code) Assessment Notes Treatment Notes Treatment Clinical Notes Section Notes 05/07/2024 Diarrhea (ICD-10 - R19.7) bland diet in small amounts; increase water intake Plan Of Treatment Medication Medication Name Sig Start Date Stop Date Notes Hyoscyamine Sulfate 0.125 MG 1 tablet as needed Orally ac and hs; Duration: 7 days 05/07/2024 Treatment Notes Assessment Notes Diarrhea bland diet in small amounts; increase water intake Next Appt Details Follow Up: prn, Reason: Progress Notes * MAURO AUSTINDOB:[birth year] (50 yo M)Acc No.[id number]:05/07/2024 Progress Notes Patient: MAURO SCHWARTZ Provider: THOM Bull :1975 A ge:48 Y S ex:Male Date:05/07/2024 Address:[address] [place] [address] [place], [id number] Pcp:Gera Ferguson Subjective: * Chief Complaints: * 1 . Stomach pain. * HPI: G astroenterology: 48 year old male presents with c/o Diarrhea P t complains of diarrhea for about a week. States it has improved today. Pt states when he belches there is a rotten egg taste in his mouth. Pt states this has been going on since before December 2022, off and on.? c/o Abdominal Distension g one now after diarrhea. c/o Belching. Denies : Abdominal Pain. D enies : Heartburn. D enies : Nausea. D enies : Vomiting. D enies : Fever. D enies : constipation. D enies : melena. diarrhea actually started last night; ate as usual at noon and then diarrhea throughout the night. has gone 3 times this AM. * ROS: C ARDIOLOGY: no D izziness. n o C hest pain. D ERMATOLOGY: no R nilam. n o H tree. U ROLOGY: no D ifficulty urinating. n o B lood in urine. * Medical History: H yperlipidemia, Type 2 Diabetes, Allergic Rhinitis, Lumbar Disc Herniation 2021. * Surgical History: L 4-L5 Discectomy 05/04/2022. * Hospitalization/Major Diagno stic Procedure: A llergic Reaction with Rash- [facility] ER 05/22/2021. * Family History: F ather: alive 68 yrs. M other: alive 68 yrs. 1 brother(s) , 2 sister(s) - healthy. 1 son(s) . . * Social History: C URRENT TOBACCO USE S moking Status: P shasta does NOT smoke. C affeine: no, frequency:. Home smoke detector use: yes. Alcohol: No. * Medications: T aking Meloxicam 15 MG Tablet 1 tab(s) orally once a day , Taking Loratadine 10 MG Tablet 1 tab(s) orally once a day , Taking Rosuvastatin Calcium 20 MG Tablet 1 tablet Orally Once a day , Taking Ezetimibe 10 MG Tablet 1 tablet Orally Once a day , Taking Pioglitazone HCl 30 MG Tablet 1 tablet Orally Once a day , Taking Farxiga 10 MG Tablet 1 tablet Orally Once a day , Taking Rybelsus 14 MG Tablet 1 tab(s) orally once a day , Taking Glimepiride 4 MG Tablet 1 tab(s) orally 2 times a day , Medication List reviewed and reconciled with the patient * Allergies: N .K.D.A. Objective: * Vitals: W t:220.6, Temp:97.8, BP:124/80, HR:90, Nurse:mic, Ht: 69.50, BMI:32.11. * Examination: G eneral Examination: General Appearance: NAD, appears healthy, alert, pleasant, well nourished and hydrated. H eart: RRR. L ungs: CTAB A&P. A bdomen:? bowel sounds present, soft, nontender, no organomegaly or masses. N eurologic Exam: alert and oriented. E xtremities: no leg edema. Assessment: * Assessment: 1. D iarrhea - R19.7 (Primary) Plan: * Treatment: Value Reference Range A /G Ratio 2.1 1.1-2.5 - mg/dL * A lbumin 4.7 3.5-5.3 - g/dL * A lkaline Phosphatase 129 40-129 - IU/L * A LT (SGPT) 25 <5-55 - IU/L * A ST (SGOT) 23 <5-46 - IU/L * B ilirubin, Total 0.6 <0.2-1.2 - mg/dL * B UN 15 6-20 - mg/dL * C alcium 9.7 8.6-10.4 - mg/dL * C hloride 101 97-108 - mmol/L * C O2 22 22-32 - mmol/L * C reatinine 0.90 0.70-1.30 - mg/dL * G lucose 117 H 65-99 - mg/dL * P otassium 4.0 3.5-5.3 - mmol/L * S odium 140 135-145 - mmol/L * P rotein 6.9 6.0-8.3 - g/dL * e GFR by Creatinine 104 >59 - mL/min/1.73m2 * Delaney Zapata 05/09/2024 12:40:16 PM > I spoke with pt and reported results ?LAB: Diarrhea Panel ([facility]) (Collection Date & Time - 05/10/2024)* see duplicate order Notes: bland diet in small amounts; increase water intake?? * Labs: * L ab: CBC Venipuncture (in house) (Collection Date & Time - 05/07/2024) Value Reference Range w bc 6.9 3.5 - 10 * l ymph 23.9% 15 - 50 * m id 5.8% 2 - 15 * g ran 70.3% 35 - 80 * r bc 5.95 3.5 - 5.5 * h gb 16.8 11.5 - 16.5 * h ct 51.0 35 - 55 * m cv 85.8 75 - 100 * m ch 28.2 25 - 35 * m chc 32.9 31 - 38 * p latlet 197 100 - 400 * Angella Joya 05/07/2024 11:57:20 AM > , Provider reviewed results while patient in office.Delaney Zapata 05/07/2024 1:47:08 PM > * Procedure Codes: 8 5025 CBC WITH AUTO DIFF, 42449 VENIPUNCT, ROUTINE* * Follow Up: p rn * Images: Billing Information: * Visit Code: 13052 Office Visit, Est Pt., Level 4. * Procedure Codes: 18458 CBC WITH AUTO DIFF. 54811 VENIPUNCT, ROUTINE*. * Electronic signature of Naheed Zapata APRN on 09/19/2025 at 08:51 AM EST Sign off status: Pending * Provider: THOM Bull Date: 0 05/07/2024 Generated for Sujata drummond/Lucy/Nickolas on: 1 11/19/2024 08:51 AM EST History and Physical Notes * HPI (History of Present Illness) Category Sub-Category Detail Notes Category Not es Gastroenterology Fever diarrhea ac tually started last night; ate as usual at noon and then diarrhea throughout the night. has gone 3 times this AM Vomiting Abdominal Pain Diarrhea Pt complains of diar ernie for about a week. States it has improved today. Pt states when he belches there is a rotten egg taste in his mouth. Pt states this has been going on since before December 2022, off and on Nausea Abdominal Distension gone now after diar ernie Heartburn Belching constipation melena Examination Category Sub-Category Detail Notes Category Not es General Examination Heart: RRR Lungs: CTAB A&P Abdomen: bowel sounds present , soft, nontender, no organomegaly or masses Extremities: no leg edema General Appearance: NAD, appears healthy , alert, pleasant, well nourished and hydrated Neurologic Exam: alert and oriented
--- OUTSIDE RECORDS SUMMARY | 2025-09-19 08:51 | XMS_ITS | Continuity of Care Document ---
Author Organization [facility] Address [address] [place] [id number] Assessment No assessment recorded. Plan of Treatment Reminders Order Date Submit Date Provider Last Modified By Organization Details Last Modified Time Details Appointments None recorded. Lab HbA1c (hemoglobin A1c), blood 2024 [facility], [address] [place] [address], [phone], 18:12:53 Referral None recorded. Procedures None recorded. Surgeries None recorded. Imaging NM, gastric emptying scan 2024 [facility] ([facility] [address], [place], [address], 18:28:46 Medication Orders ondansetron 4 mg disintegrat ing tablet [address] [facility], [address] [facility] [address], [place], [address], 18:12:55 Patient TargetsNo targets recorded. Patient InstructionsNo instructions recorded. Reason for Referral None Reported. Results Created Date Observation Date Name Description Value Unit Range Abnormal Flag Note LastModifiedBy Organization Detail LastModifiedTime 09/09/2009/09/2025 HbA1c (hemo globi n A1c), blood HbA1C 7.8 % Not Available [address], [id number], 09/09/2025 17:15:53 Result Notes None recorded. Problems Name Problem SNOMED Code Status Onset Date Resolution Date Notes Provider Name and Address Organization Details Recorded Time Type 2 diabetes mellitus 10647187 Active 024 DESHAWN Dominguez - [facility] 15:21:14 Problem Notes None recorded. Procedures Surgical History Date Name Laterality Status Provider Name and Address Organization Details Recorded Time Back Surgery completed Gely Snyder [place] - [facility] 06/14/2024 15:24:30 Imaging Results None recorded. Procedure Notes None recorded. Medical Equipment None Reported. Allergies No known drug allergies Medications Name Sig Start Date Stop Date Status Note LastModified by Organization Details LastModified Time cyclobenza coleman 10 mg tablet TAKE 1 TABLET BY MOUTH TWICE DAILY NEEDED FOR MUSCLE SPASM 06/14 completed Not Available Not Available Not Available amoxicilli n 500 mg capsule 07/30 completed Not Available Not Available Not Available atorvastat in 40 mg tablet TAKE 1 TABLET BY MOUTH ONCE DAILY 06/14 completed Not Available Not Available Not Available promethazi ne-DM 6.25 mg-15 mg/5 mL oral syrup TAKE 5 ML BY MOUTH EVERY 6 HOURS NEEDED FOR COUGH 06/10 completed Not Available Not Available Not Available doxycyclin e hyclate 100 mg capsule 06/10 completed Not Available Not Available Not Available azithromyc in 250 mg tablet TAKE 2 TABLETS BY MOUTH ON DAY 1, AND THEN TAKE 1 TABLET BY MOUTH ONCE A DAY ON DAY 2 THROUGH DAY 5 06/10 completed Not Available Not Available Not Available simvastati n 10 mg tablet TAKE 1 TABLET BY MOUTH ONCE DAILY 2024 active Not Available Not Available Not Avai lable aspirin 81 mg tablet,del ayed release TAKE 1 TABLET BY MOUTH ONCE DAILY 2024 active Not Available Not Available Not Avai lable meclizine 25 mg tablet 07/30 completed Not Available Not Available Not Available benzonatat e 100 mg capsule TAKE 1 CAPSULE BY MOUTH THREE TIMES DAILY NEEDED FOR COUGH 06/10 completed Not Available Not Available Not Available glimepirid e 4 mg tablet TAKE 1 TABLET BY MOUTH TWICE DAILY 2024 active Not Available Not Available Not Avai lable methylpred nisolone 4 mg tablets in a dose pack TAKE BY MOUTH DIRECTED ON INSIDE OF PACKAGE 06/10 completed Not Available Not Available Not Available albuterol sulfate HFA 90 mcg/actuat ion aerosol inhaler 06/10 completed Not Available Not Available Not Available pioglitazo ne 30 mg tablet TAKE 1 TABLET BY MOUTH ONCE DAILY 06/10 completed Not Available Not Available Not Available ondansetro n 4 mg disintegra ting tablet Place 1 tablet every 8 hours by translin gual route as needed for 5 days, for nausea. 2024 active Not Available Not Available Not Avai lable fluticason e propionate 50 mcg/actuat ion nasal spray,susp ension 06/10 completed Not Available Not Available Not Available metformin ER 500 mg tablet,ext ended release 24 hr TAKE 1 TABLET BY MOUTH TWICE DAILY 06/14 completed Not Available Not Available Not Available lisinopril 2.5 mg tablet Take 1 tablet every day by oral route. 2024 active Not Available Not Available Not Avai lable amoxicilli n 875 mg-potassi um clavulanat e 125 mg tablet TAKE 1 TABLET BY MOUTH EVERY 12 HOURS 06/10 completed Not Available Not Available Not Available ezetimibe 10 mg tablet TAKE 1 TABLET BY MOUTH ONCE DAILY 06/14 completed Not Available Not Available Not Available rosuvastat in 20 mg tablet TAKE 1 TABLET BY MOUTH ONCE DAILY 06/14 completed Not Available Not Available Not Available bismuth subcit K 140 mg-metroni dazole 125 mg-tetracy russ 125 mg cap TAKE 3 CAPSULES BY MOUTH 4 TIMES DAILY FOR 10 DAYS 07/30 completed Not Available Not Available Not Available Lantus Solostar U-100 Insulin 100 unit/mL (3 mL) subcutaneo us pen Inject 8 units every day by subcutan eous route at bedtime. 2024 active Not Available Not Available Not Avai lable levocetiri zine 5 mg tablet TAKE 1 TABLET BY MOUTH ONCE DAILY 2024 active Not Available Not Available Not Avai lable Mucus Relief ER 600 mg tablet, extended release TAKE 2 TABLETS BY MOUTH TWICE DAILY NEEDED FOR COUGH 08/12 /2025 completed Not Available Not Available Not Available sodium,pot assium,mag sulfates 17.5 gram-3.13 gram-1.6 gram oral soln TAKE 1 PACKAGE BY MOUTH FOR 2 DAYS 06/14 completed Not Available Not Available Not Available Farxiga 10 mg tablet TAKE 1 TABLET BY MOUTH EVERY DAY 06/10 completed unable to get going on 2 months Not Available Not Available Not Available Jardiance 10 mg tablet Take 1 tablet every day by oral route for 14 days. 07/01 completed Not Available Not Available Not Available Jardiance 25 mg tablet Take 1 tablet every day by oral route. 2024 active Not Available Not Available Not Avai lable Rybelsus 14 mg tablet TAKE 1 TABLET BY MOUTH ONCE DAILY 2024 active Not Available Not Available Not Avai lable Vitals Date Recorded Body height Body mass index (BMI) Body weight Respiratory rate Heart rate Oxygen saturation Pain severity - 0-10 verbal numeric rating [Score] - Reported Systolic And Diastolic Provider Name and Address Organization Details Last Updated DateTime 5 177.8 cm 32.6 kg/m2 104825. 47 g 16 /min 95 /min 96 % 0 118/78 mm[Hg] Elsa Sin [place] - [facility] 5 17:11:27 Social History Question Answer Notes LastModified by Organizat ion Details LastModified Time Tobacco Smoking Status Former Smoker Geyl alvarez, [place] - [facility] 06/14/2024 15:23:25 Do You Have An Advance Directive? No Information not available 06/14/2024 Are You Blind Or Do You Have Difficulty Seeing? No Information not available 06/14/2024 What Is Your Level Of Caffeine Consumption? Occasional Information not available 06/14/2024 Are You Deaf Or Do You Have Serious Difficulty Hearing? No Information not available 06/14/2024 What Type Of Diet Are You Following? REGULAR Information not available 06/14/2024 What Is The Highest Grade Or Level Of School You Have Completed Or The Highest Degree You Have Received? [id number] Information not available 06/14/2024 Have There Been Any Changes To Your Family Or Social Situation? No Information no t available 06/14/2024 What Is The Fluoride Status Of Your Home? Unknown Information not available 06/14/2024 When Did You Quit Smoking? 16+yearssincel astciadonay Information not available 06/14/2024 Do You Have A Medical Power Of Lead Simulation Modeling Engineer? No Information not available 06/14/2024 What Was The Date Of Your Most Recent Tobacco Screening? 06/10/2025 cbuckler Information not available 06/10/2025 What Is Your Current Pack Years? 10packyears Information not available 06/14/2024 What Is Your Relationship Status? Information not available 06/14/2024 Do You Have Smoke And Carbon Monoxide Detectors In Your Home? Yes Information not available 06/14/2024 At What Age Did You Start Smoking Tobacco? 11 Information not available 06/14/2024 How Much Tobacco Do You Smoke? No Information not available 06/14/2024 Has Tobacco Cessation Counseling Been Provided? No Information not available 06/14/2024 How Many Years Have You Smoked Tobacco? 7 Information not available 06/14/2024 Do You Have Difficulty Walking Or Climbing Stairs? No Information not available 06/14/2024 Sex: Male Functional Status Question Answer Note LastModified by Organizat ion Details LastModified Time Do you use any illicit or recreational drugs? No Information not available 06/14/2024 Do you or have you ever used any other forms of tobacco or nicotine? No Information not available 06/14/2024 What is your level of alcohol consumption? None Information not available 06/14/2024 Are you currently employed? Yes Information not available 06/14/2024 Do you have transportation difficulties? No Information not available 06/14/2024 Are you able to walk independently without assistance or assistive devices? YESWOREST Information not available 06/14/2024 Do you have difficulty doing errands alone? No Information not available 06/14/2024 Are you able to care for yourself independently? 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 No Information not available 06/14/2024 What is your exercise level? None Information not available 06/14/2024 Mental Status Question Answer Note LastModified by Organizat ion Details LastModified Time Do you feel stressed (tense, restless, nervous, or anxious, or unable to sleep at night)? [id number] Information not available 06/14/2024 Do you have difficulty concentrating, remembering or making decisions? No Information no t available 06/14/2024 Family History Relationship Description Onset Age of this Age Resolved Age Notes LastModified by Organization Details LastModified Time Father No current problems or disability bstears Not available 06/14 15:22:25 Mother No current problems or disability bstears Not available 06/14 15:22:26 Medical History No medical history recorded. Past Encounters Encounter ID Performer Location Encounter Start Date Encounter Closed Date Diagnosis/Indication Diagnosis SNOMED-CT Code Diagnosis ICD10 Code Diagnosis IMO Codes Diagnosis Note [id number] Sarah Vo APRN [address] [address] 09/09/2025 16:58:32 09/09/2025 17:58:10 Type 2 diabetes mellitus 54882200 E11.9 *Diabetic Measures:M etformin:n o can not takeACE/AR B:yesASA:y esStatin:s tartedGLP: yeshold rybelsusin crease lantus to 10 units and continue to increase by 2 units if adv glucose over 200 Nausea and vomiting 1693 1999 R11.2 976346 gastric emptying study to r/o gastropare sisstop rybelsusif no improvemen t or worsening return Health Concerns Section Related Observation LastModified by Organization Detai ls LastModified Time None Recorded Concern Status LastModified by Organization Details LastModified Time None Recorded Payers Encounter Date Sequence Insurance Name Policy Number Policy Odonnell Covered Member ID Odonnell Member ID Guarantor Name 09/09/2025 1 [id number] Jaky Gibson [id number] Ken Gibson Notes Date Note Type Note Provider Name and Address Organization Details Recorded Time 09/09/2025 text/html ROS as noted in the HPI 50 yr old male presents for a follow up on diabetes. pt states taking 8 units lantus. glucose still staying around 200.pt states he is having alot of nausea and vomiting at least once a week where he is unable to keep anything down.pt states he feels full even if he hasn't eaten, states feels liquids slush around in stomach. Sarah Vo, SWIMMING PROFESSOR [address], [place], [address], [facility] - [facility] 09/09/2025 18:14:20
--- OUTSIDE RECORDS SUMMARY | 2025-09-19 08:51 | XMS_ITS | Data Portability ---
Author Organization [facility] Lindsay DECL[facility]OS[facility] Address [address] [address] [place] [address] Care Team Providers Care Baker Operator Automatic Name Role Phone GUME RODRIGUEZ Primary Care Provider [phone] Assessment Encounter Date Assessment Date Assessment LastModified by Organization Details LastModified Time 04/12/2022 04/12/2022 MRI lumbar spine . [facility]. 04/05/22. Images reviewed by Dr. Alexander and myself L arge left L4-5 disc herniation Mr. Gibson he is a 46-year-old male with left posterior radicular lower extremity pain and a large left-sided L4-5 disc herniation. He is done physician directed exercises with worsening of his pain. He has not had improvement with oral steroids or NSAIDs either. Dr. Alexander discussed with him that he is a candidate for a left L4-5 lumbar microdiscectomy. Another option would be to try an epidural steroid injection at this level. Because his pain is severe and interfering with his sleep we will refer him to pain management for left L4-5 epidural steroid injection and tentatively schedule him for the discectomy in a few weeks. If he gets lasting relief with the injection he may call and cancel the surgery, but Dr. Allen expects that the improvement from the injection will be temporary. Dr. Alexander expects that any further physical therapy will only increase his pain.T he patient understands and agrees with this plan. He will meet with our surgery cord later today. [email or web address] Not available 04/12/2022 15:56:23 05/04/2022 05/04/2022 Date of procedure: May 04, 2022 Preoperative/post operative diagnosis: Left L4-5 disc herniation with radiculopathy Procedure: Left L4-5 microlumbar discectomy: Surgeon: Riky alexander Casualty Claim Adjuster: Surjit Cruz PA-C. He assisted through the entire operation without test such as suctioning soft tissue retraction nerve root retraction wound closure Gen. endotracheal anesthesia Blood loss: Less than 25 mL Specimen: Disc Occasions: None Condition: Stable to PACU Indication for procedure: 46-year-old gentleman with refractory left lower extremity radiculopathy failed conservative treatment. As a large herniation was severe pain that radiates all the way down to the foot. I thought he was a candidate for the above-mentioned procedure. About within the office. Indications risks and benefits are explained. I met with him and his prior to the operation today. I went over the procedure again today in detail. I answered all her questions. Consent was signed for surgery. Description of procedure: After informed consent was obtained the patient was brought to the operating room and general endotracheal anesthesia was induced routinely. He was carefully turned prone on the operating room table to his torso resting on laminectomy rolls. The arms are abducted and flexed. All pressure was up and protected. He was secured that the straps per routine. Hair was clipped from the lack. A midline incision was planned over L4-5. Lateral fluoroscopy used to localize the level. The back was prepped and draped per usual fashion. Prophylactic and works given. The incision was opened with a scalpel. The incision about an inch long. Bovie cautery was used to dissect down to the fascia. Separate also dissection performed exposing the L4 inferior lamina and the L4-5 and her interlaminar space. We took an image to confirm the correct level. The color retractors were used to hold the wound open transversely. The microscope was brought in. A hemilaminotomy was started at the infra aspect of the L4 lamina left side carried cephalad to the free and ligamentum flavum. This was completed with Kerrison punches. I was careful not to violate much into the facet joint and did not come close to the pars interarticularis. The ligament flavum was retracted inferiorly and laterally with a nerve hook and resected with Kerrison punches there was thereafter at the edge of the thecal sac. I could mobilize the shoulder of the L5 nerve root on the left side and there is clearly a large subannular type disc herniation. The nerve root was retracted and protected with a nerve root retractor. The annulus was incised longitudinally raise pituitary forward biting forceps to resect the large subannular herniation and a number of fragments. It's been a great deal of time decompressing all subannular space and also entered the disc space proper with different pituitary forceps to try to remove the loose disc material. After all these maneuvers were complete the nerve root was nice and free. I could easily advance the ball probe out the L5 foramen and the L4 foramen for that matter as well. I was happy with the decompression. Meticulous hemostasis was obtained bipolar cautery. Bone edges were waxed. There is no CSF leakage. Placed a piece of Gelfoam over the dura and laminotomy site. Meticulous muscular hemostasis was obtained. The fascia was closed running Vicryl suture. Marcaine was injection of the subcutaneous tissue and an muscle on the left side. Stanislav's ligament arm circles and her provide sutures and the skin was closed with toya. A dressing was applied. The patient ultimately went to recovery in good condition in. [email or web address] Not available 05/04/2022 10:44:04 05/19/2022 05/19/2022 Pt is S/P left L4-5 microlumbar discectomy on 05/04/2022. Here for staple removal. Incision is well healed. No signs of infection. Toya were removed. Pt is doing well, tolerated procedure well, [email or web address] Not available 06/08/2022 11:38:22 06/07/2022 06/07/2022 Doing well after undergoing a left L4-5 microlumbar discectomy. Pain is resolved. I'll let him do some work hardening physical therapy. He'll start this in a couple of weeks. 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 When he returns to work he'll need to do light duty for a month. This means that he will have someone help kitchen on hitch the trailer and do any lifting or heavy labor associated with driving a truck. Follow-up when necessary. He was happy with the plan. [email or web address] Not available 06/07/2022 10:56:41 Plan of Treatment Reminders Order Date Submit Date Provider Last Modified By Organization Details Last Modified Time Details Appointments None record ed. Lab None record ed. Referral None record ed. Procedures None record ed. Surgeries None record ed. Imaging None record ed. Medication Orders None record ed. Patient TargetsNo targets recorded. Patient InstructionsNo instructions recorded. Reason for Referral None Reported. Results Created Date Observation Date Name Description Value Unit Range Abnormal Flag Note LastModifiedBy Organization Detail LastModifiedTime 05/04/20 22 05/04/2022 COMPL ETE BLOOD COUNT white blood cells 7.3 K/uL 3.8-10 .8 normal Not Available [facility] [address] [place] [address], [phone], 05/04/2022 07:43:42 05/04/20 22 05/04/2022 COMPL ETE BLOOD COUNT red blood cells 5.76 M/uL 4.20-5 .80 normal Not Available [facility] [address] [place] [address], [phone], 05/04/2022 07:43:42 05/04/20 22 05/04/2022 COMPL ETE BLOOD COUNT hemoglobin 16.2 g/dL 14.0-1 8.0 normal Not Available [facility] [address] [place] [address], [phone], 05/04/2022 07:43:42 05/04/20 22 05/04/2022 COMPL ETE BLOOD COUNT hematocrit 48.3 % 40.0-5 2.0 normal Not Available [facility] [address] [place] [address], [phone], 05/04/2022 07:43:42 05/04/20 22 05/04/2022 COMPL ETE BLOOD COUNT MCV 84 fL 80-100 normal Not Available [facility] [address] [place] [address], [address], 05/04/2022 07:43:42 05/04/20 22 05/04/2022 COMPL ETE BLOOD COUNT MCH 28 pg 26-35 normal Not Available [facility] [address] [place] [address], [address], 05/04/2022 07:43:42 05/04/20 22 05/04/2022 COMPL ETE BLOOD COUNT MCHC 34 g/dL 32-36 normal Not Available [facility] [address] [place] [address], [address], 05/04/2022 07:43:42 05/04/20 22 05/04/2022 COMPL ETE BLOOD COUNT RDW 13.0 % 11.0-1 5.0 normal Not Available [facility] [address] [place] [address], [phone], 05/04/2022 07:43:42 05/04/20 22 05/04/2022 COMPL ETE BLOOD COUNT MPV 7.9 fL 6.2-10 .5 normal Not Available [facility] [address] [place] [address], [address], 05/04/2022 07:43:42 05/04/20 22 05/04/2022 COMPL ETE BLOOD COUNT platelet count 196 K/uL 130-40 0 normal Not Available [facility] [address] [place] [address], [address], 05/04/2022 07:43:42 05/04/20 22 05/04/2022 COMPL ETE BLOOD COUNT neutrophil,a bsolute 4.1 K/uL 1.6-8. 4 normal Not Available [facility] [address] [place] [address], [address], 05/04/2022 07:43:42 05/04/20 22 05/04/2022 COMPL ETE BLOOD COUNT lymphocyte,a bsolute 2.2 K/uL 0.4-5. 1 normal Not Available [facility] [address] [place] [address], [phone], 05/04/2022 07:43:42 05/04/20 22 05/04/2022 COMPL ETE BLOOD COUNT monocyte,abs olute 0.8 K/uL 0.0-1. 2 normal Not Available [facility] [address] [place] [address], [phone], 05/04/2022 07:43:42 05/04/20 22 05/04/2022 COMPL ETE BLOOD COUNT eosinophil,a bsolute 0.2 K/uL 0.0-0. 8 normal Not Available [facility] [address] [place] [address], [address], 05/04/2022 07:43:42 05/04/20 22 05/04/2022 COMPL ETE BLOOD COUNT basophil,abs olute 0.0 K/uL 0.0-0. 3 normal Not Available [facility] [address] [place] [address], [address], 05/04/2022 07:43:42 05/04/20 22 05/04/2022 COMPL ETE BLOOD COUNT % neutrophils 56.4 % 42.0-7 8.0 normal Not Available [facility] [address] [place] [address], [address], 05/04/2022 07:43:42 05/04/20 22 05/04/2022 COMPL ETE BLOOD COUNT % lymphocytes 29.8 % 11.0-4 7.0 normal Not Available [facility] [address] [place] [address], [address], 05/04/2022 07:43:42 05/04/20 22 05/04/2022 COMPL ETE BLOOD COUNT % monocytes 10.9 % 0.0-11 .0 normal Not Available [facility] [address] [place] [address], [address], 05/04/2022 07:43:42 05/04/20 22 05/04/2022 COMPL ETE BLOOD COUNT % eosinophils 2.4 % 0.0-7. 0 normal Not Available [facility] [address] [place] [address], [address], 05/04/2022 07:43:42 05/04/20 22 05/04/2022 COMPL ETE BLOOD COUNT % basophils 0.5 % 0.0-3. 0 normal Not Available [facility] [address] [place] [address], [address], 05/04/2022 07:43:42 05/04/20 22 05/04/2022 COMPL ETE BLOOD COUNT nucleated red cells 0.0 % 0.0-0. 9 normal Not Available [facility] [address] [place] [address], [address], 05/04/2022 07:43:42 05/04/20 22 05/04/2022 COMPL ETE BLOOD COUNT nucleated RBCs, absolute 0.00 K/uL not estab. normal Not Available [facility] [address] [place] [address], [address], 05/04/2022 07:43:42 05/04/20 22 05/04/2022 BASIC METAB OLIC PANEL glucose 210 mg/dL 74-100 high Not Available [facility] [address] [place] [address], [address], 05/04/2022 08:08:47 05/04/20 22 05/04/2022 BASIC METAB OLIC PANEL blood urea nitrogen 19 mg/dL 6-20 normal Not Available [facility] [address] [place] [address], [address], 05/04/2022 08:08:47 05/04/20 22 05/04/2022 BASIC METAB OLIC PANEL creatinine 0.88 mg/dL 0.70-1 .28 normal Not Available [facility] [address] [place] [address], [address], 05/04/2022 08:08:47 05/04/20 22 05/04/2022 BASIC METAB OLIC PANEL BUN/creatini ne ratio 22 (calc ) 10-20 high Not Available [facility] [address] [place] [address], [address], 05/04/2022 08:08:47 05/04/20 22 05/04/2022 BASIC METAB OLIC PANEL sodium 138 mmol/ L 136-14 5 normal Not Available [facility] [address] [place] [address], [address], 05/04/2022 08:08:47 05/04/20 22 05/04/2022 BASIC METAB OLIC PANEL potassium 4.3 mmol/ L 3.4-5. 0 normal Not Available [facility] [address] [place] [address], [address], 05/04/2022 08:08:47 05/04/20 22 05/04/2022 BASIC METAB OLIC PANEL chloride 102 mmol/ L 98-107 normal Not Available [facility] [address] [place] [address], [address], 05/04/2022 08:08:47 05/04/20 22 05/04/2022 BASIC METAB OLIC PANEL carbon dioxide 24 mmol/ L 22-31 normal Not Available [facility] [address] [place] [address], [address], 05/04/2022 08:08:47 05/04/20 22 05/04/2022 BASIC METAB OLIC PANEL anion gap 12 (calc ) 7-25 normal Not Available [facility] [address] [place] [address], [address], 05/04/2022 08:08:47 05/04/20 22 05/04/2022 BASIC METAB OLIC PANEL calcium 9.5 mg/dL 8.6-10 .2 normal Not Available [facility] [address] [place] [address], [address], 05/04/2022 08:08:47 05/04/20 22 05/04/2022 BASIC METAB OLIC PANEL GFR 106 >= 60 normal NOT E New calcu latio n for GFR (CKD- EPI 2020) is formu lated witho ut race adjus tment facto rs at the recom menda tion of the [facility] marie le[facility] and Amjulio [facility] ty of Nephr ology . This calcu latio n has not been valid ated in pregn ant women . For girish jonelle simsjudit nts refer to https ://mamadou w.elías bedollay.o sanchez/kelvin charles s/ROCIOO QI/gf r_cal culat orPed Not Available [facility] [address], [place], [address], 05/04/2022 08:08:47 Result Notes None recorded. Medical Equipment None Reported. Allergies No known drug allergies Medications Name Sig Start Date Stop Date Status Note LastModified by Organization Details LastModified Time atorvastatin 40 mg tablet TAKE 1 TABLET BY MOUTH ONCE DAILY active Not Available Not Available No t Available metformin 500 mg tablet Take 1 tablet twice a day by oral route. active Not Available Not Available No t Available promethazine-D M 6.25 mg-15 mg/5 mL oral syrup TAKE 5 ML BY MOUTH EVERY 6 HOURS NEEDED FOR COUGH active Not Available Not Available No t Available Percocet 7.5 mg-325 mg tablet Take 1 tablet every 4 hours by oral route as needed. 2021 active Not Available Not Available Not Avai lable azithromycin 250 mg tablet TAKE 2 TABLETS BY MOUTH ON DAY 1, AND THEN TAKE 1 TABLET BY MOUTH ONCE A DAY ON DAY 2 THROUGH DAY 5 active Not Available Not Available No t Available meloxicam 15 mg tablet Take 1 tablet every day by oral route. active Not Available Not Available No t Available prednisone 20 mg tablet TAKE 1 TABLET BY MOUTH TWICE DAILY active Not Available Not Available No t Available glimepiride 4 mg tablet TAKE 1 TABLET BY MOUTH TWICE DAILY active Not Available Not Available No t Available methylpredniso lone 4 mg tablets in a dose pack TAKE BY MOUTH DIRECTED ON INSIDE OF PACKAGE active Not Available Not Available No t Available pioglitazone 30 mg tablet TAKE 1 TABLET BY MOUTH ONCE DAILY active Not Available Not Available No t Available ondansetron 4 mg disintegrating tablet DISSOLVE 1 TABLET IN MOUTH EVERY 6 TO 8 HOURS NEEDED active Not Available Not Available No t Available metformin ER 500 mg tablet,extende d release 24 hr TAKE 2 TABLETS BY MOUTH TWICE DAILY active Not Available Not Available No t Available loratadine 10 mg tablet TAKE 1 TABLET BY MOUTH ONCE DAILY active Not Available Not Available No t Available cyclobenzaprin e 5 mg tablet TAKE 1 TABLET BY MOUTH THREE TIMES DAILY NEEDED active Not Available Not Available No t Available Farxiga 10 mg tablet TAKE 1 TABLET BY MOUTH ONCE DAILY active Not Available Not Available No t Available Rybelsus 3 mg tablet Take 1 tablet every day by oral route. active Not Available Not Available No t Available Vitals Date Recorded Body height Body mass index (BMI) Body weight Systolic And Diastolic Provider Name and Address Organization Details Last Updated DateTime 04/12/2022 177.8 cm 32.3 kg/m2 292121.28 g 122/82 mm[Hg] [facility] 04/12/2022 09:18:28 Date Recorded Body height Body mass index (BMI) Body weight Systolic And Diastolic Provider Name and Address Organization Details Last Updated DateTime 06/07/2022 177.8 cm 32.3 kg/m2 113057.28 g 122/82 mm[Hg] [facility] 06/07/2022 10:35:50 Social History None recorded. Functional Status None recorded. Mental Status None recorded. Family History Relationship Description Onset Age of this Age Resolved Age Notes LastModified by Organization Details LastModified Time Unspecified Relation Diabetes mellitus [email or web address] Not available 04/12 09:17:15 Medical History Condition Response Diabetes Y Hypertension Y Past Encounters Encounter ID Performer Location Encounter Start Date Encounter Closed Date Diagnosis/Indication Diagnosis SNOMED-CT Code Diagnosis ICD10 Code Diagnosis IMO Codes Diagnosis Note [id number] OSMANY HUGHES PA-C [facility] [address] [place] [id number] 04/12/2022 08:54:52 04/15/2022 15:21:55 Prolapsed lumbar intervertebral disc 440129624 M51.26 [id number] RIKY ALEXANDER MD SURGERY SCHEDULE [address] [place] [address] 05/04/2022 07:48:32 05/04/2022 07:50:37 [id number] RIKY ALEXANDER MD [facility]UROSUR[facility] [address] [place] [address] 05/19/2022 10:10:02 05/30/2022 13:47:32 [id number] RIKY ALEXANDER MD [facility]UR[facility] [address] [place] [address] 06/07/2022 10:31:25 06/07/2022 14:08:40 Lumbar disc prolapse with radiculopathy 709949088 M51.16 Health Concerns Section Related Observation LastModified by Organization Detai ls LastModified Time None Recorded Concern Status LastModified by Organization Details LastModified Time None Recorded Advance Directives Directive None Recorded Payers Insurance Date Sequence Insurance Name Policy Number Policy Odonnell Covered Member ID Odonnell Member ID Guarantor Name 06/04/2022 1 [facility] [id number] Jaky Gibson [id number] Ken Gibson Notes Date Note Type Note Provider Name and Address Organization Details Recorded Time 04/12/2022 text/html Mr. Gibson reports about 9 months of low back pain that radiates into the left posterior thigh and calf continuing into the bottom of his foot. About 7 months ago he saw his primary care physician and was given physician directed home exercises. He did these at home but they made his pain worse so he stopped them. He has had oral steroids and meloxicam without improvement. He denies right lower extremity pain. OSMANY HUGHES PA-C [address] [place], [address], [facility] 04/12/2022 15:56:41 06/07/2022 text/html Status post left L4-5 microlumbar discectomy which I performed on May 04, 2022. Doing great. He has no severe pain at all. Very happy. RIKY ALEXANDER MD [address] [place] [address], [address], [facility] 06/07/2022 10:57:00
--- NOTE | 2025-09-19 08:52 | NM_ITS ---
FINAL REPORT TECHNIQUE: Sequential anterior images were obtained after the ingestion of 2 whole eggs scrambled, white toast with better, and 6 out cup of water radiolabeled with 0.56 mCi technetium 99M sulfur colloid. CLINICAL HISTORY: NAUSEA ANS VOMITING 9 am .56 [facility] tc sulfur colloid injected into 2 whole egg scramble white toast with butter 6 oz cup of water FINDINGS: GASTRIC EMPTYING SCAN Static images show normal emptying of the stomach into the small bowel. Based on the time activity curve, the estimated half-emptying time is 59 minutes which is within normal limits. IMPRESSION: Normal gastric emptying study. Reviewed, Interpreted and Dictated by Hemal Thomas MD Transcribed by Shakila Estrella Authenticated and [facility]
--- OUTSIDE RECORDS SUMMARY | 2025-09-19 08:52 | XMS_ITS | Patient Health Record ---
[facility] [address] [place] [address] Care Team Providers Care Chief Operating Officer Name Role Phone Arelis Fergusonian Primary Care Provider Allergies No Known Allergies Reason For Referral No Information Medications Medication SIG (Take, Route, Frequency, Duration) [...] and hs; Duration: 7 days 05/07/2024 Active Problems Problem Type SNOMED Code ICD Code Onset Dates Problem Status W/U Status Risk Notes Problem Hypertriglyceridemia (151432779) Hypertriglyceridemia (E78.1) Active confirmed Problem Folliculitis (41029218) Folliculitis (L73.9) Active confirmed Problem Hyperglycemia due to type 2 diabetes mellitus (759116330102531) Type 2 diabetes mellitus with hyperglycemia (E11.65) Active confirmed Problem Mixed hyperlipidemia (330649186) Mixed hyperlipidemia (E78.2) Active confirmed Problem Sciatica (01011394) Lumbago with sciatica, left side (M54.42) Active confirmed Problem Chronic pain (02753951) Other chronic pain (G89.29) Active confirmed Problem Displacement of lumbar intervertebral disc without myelopathy (28670672) Bulging lumbar disc (M51.26) Active confirmed Problem Sciatica (41757799) Acute left-s ided low back pain with left-sided sciatica (M54.42) Active confirmed Problem Type II diabetes mellitus without complication (234309608) Type 2 diabetes mellitus without complication, without long-term current use of insulin (E11.9) Active confirmed Problem Sciatica (82173500) Bilateral lo w back pain with left-sided sciatica, unspecified chronicity (M54.42) Active confirmed Problem Sciatica (73849960) Acute midlin e low back pain with left-sided sciatica (M54.42) Active confirmed Problem Obesity (619131058) Non morbid o besity (E66.9) Active confirmed Problem Allergic rhinitis (08127522) Allergic rhinitis, unspecified seasonality, unspecified trigger (J30.9) Active confirmed Plan Of Treatment No Information Insurance Providers Payer Name Payer Address Payer Phone Subscriber Number Group Number Insured Name Patient Relationship to Insured Coverage Start Date Coverage End Date [facility] [address] [address] [place] [address] [id number] [phone] [id number] MAURO HELM Self - patient is the insured Medical (General) History Medical History History ICD Code Hyperlipidemia Type 2 Diabetes Allergic Rhinitis Lumbar Disc Herniation 2021 Surgical History Surgery Date(Month/Year) L4-L5 Discectomy 05/04/2022 Hospitalization History Reason Date(Month/Year) Allergic Reaction with Rash- [facility] ER 04/30
[2025-09-19] MEDS: TC99M SULF.COLLOID;1 DOSE (UP TO 20 MCI) IV (12:44)
== END 2025-09-19 23:59 | disposition home or self-care (01) ==
LOC: RAD 08:49
PROVIDERS: PCP Nurse Practitioner Family; Visit Provider Nurse Practitioner Family
DX: R11.2 Nausea with vomiting, unspecified (principal)
CPT/HCPCS: 78264; A9541

== ENCOUNTER 2025-10-15 09:21 | Outpatient (CLI) | payer OTHER, SELFPAY ==
[2025-10-15 11:11] LABS: Free T4 (Free Thyroxine) 1.11 ng/dl (0.78-2.19)
[2025-10-20 05:08] LABS: Free Testosterone (Direct) 3.8 pg/mL (7.2-24.0); Testosterone, Total, LC/MS 230.5 ng/dL (264.0-916.0)
== END 2025-10-15 23:59 | disposition home or self-care (01) ==
LOC: LAB 09:23
PROVIDERS: PCP Nurse Practitioner Family; Visit Provider Nurse Practitioner Family
DX: R53.82 Chronic fatigue, unspecified (principal)
CPT/HCPCS: 36415; 84402; 84403; 84439